=== PATIENT | male | born 1940 | race Caucasian/White ===

== ENCOUNTER 2019-01-20 22:50 | Inpatient (IN) | payer MEDICARE ==
[2019-01-20 23:35] LABS: INR-International Normal Ratio 1.1; PTT 29.8 SEC (22.9-36.1); Prothrombin Time 14.7 SEC (12.0-14.7)
[2019-01-20 23:48] LABS: #Lymphocytes 0.5 thou/uL (1.20-3.40); #Monocytes 0.3 thou/uL (0.11-0.59); #Neutrophils 4.3 thou/uL (1.40-6.50); %Eosinophils 0.8 % (0.0-10.0); %Lymphocytes 9.5 % (21.0-51.0); %Monocytes 6.6 % (0.0-10.0); %Neutrophils 83.1 % (42.0-75.0); Hemoglobin 14.7 g/dL (14.0-18.0); Mean Corpuscular HGB CONC 31.6 g/dL (32.0-36.0); Mean Corpuscular Hemoglobin 30.5 pg (27.0-31.0); Mean Corpuscular Volume 96.5 fL (78.0-98.0); Mean Platelet Volume 8.6 fL (7.4-10.4); Platelet Count 119 thou/uL (130-400); Platelet Morphology Comment Appears Decreased; RBC Distribution Width 13.3 % (11.5-14.5); RBC Morphology Normal; Red Blood Cell (RBC) Count 4.82 mill/uL (4.70-6.10); White Blood Cell (WBC) Count 5.1 thou/uL (4.8-10.8)
[2019-01-20 23:49] LABS: CK (CPK) 88 U/L (30-200); Lipase 35 U/L (8-78)
[2019-01-21] MEDS ORDERED: Metoclopramide HCl 10 MG/2 ML VIAL ONE (01:28)
[2019-01-21] MEDS ORDERED: Ondansetron ODT 4 MG TAB PO PRN (01:46)
[2019-01-21] MEDS ORDERED: Acetaminophen 325 MG TAB PO PRN (01:46)
[2019-01-21] MEDS ORDERED: Ondansetron PF 4 MG/2 ML Vial IVP PRN (01:46)
[2019-01-21] MEDS ORDERED: Acetaminophen 650 MG Suppository PR PRN (01:46)
[2019-01-21 02:05] LABS: Hemoglobin 14.3 g/dL (14.0-18.0)
[2019-01-21 02:34] LABS: Troponin I Less than 0.010 ng/mL (< 0.028)
[2019-01-21 03:01] VITALS: BMI 36.5
[2019-01-21] MEDS: Pantoprazole 80 MG in Sodium Chloride 0.9% 100 ML IVP SCH ×2 (03:07→13:40)
--- NOTE | 2019-01-21 04:47 | HP ---
PRIMARY CARE DOCTOR: Dr. Chuy Shearer. CODE STATUS: Full code. TIME OF EVALUATION: 1:35 a.m. CHIEF COMPLAINT: Throwing up blood. HISTORY OF PRESENT ILLNESS: This is a 78-year-old male patient with past medical history of coronary artery disease, hypertension, who came to the hospital after having an episode of throwing up blood. The patient had multiple vomiting during the day. He reported it was red blood with no clear triggers, no alleviating factors, associated with signs of indigestion. The patient is on Eliquis. Denies taking any NSAIDs and no previous history of ulcer disease or any history of cancer in the family. The patient received no EGD or colonoscopy before. Symptoms were reported as moderate, associated with abdominal pain. REVIEW OF SYSTEMS: CONSTITUTIONAL: No fever, chills, or generalized weakness. RESPIRATORY: No cough, sputum production, or shortness of breath. CARDIOVASCULAR: The patient has no chest pain, no palpitation. GASTROINTESTINAL: The patient has nausea, vomiting, and hematemesis. No diarrhea or abdominal pain. DIET AID: No dizziness, headache, or feeling lightheaded. GENITOURINARY: No burning on urination. EXTREMITIES: No leg swelling. All other systems were reviewed and negative except for the findings mentioned above. PAST MEDICAL HISTORY: Positive for coronary artery disease, hypertension, and arrhythmia. PAST SURGICAL HISTORY: The patient has a defibrillator and pacemaker. PSYCHIATRIC HISTORY: No previous psych history. SOCIAL HISTORY: The patient lives at home with family. Drinks socially. No drug use. No smoking history. KNOWN ALLERGIES: No known drug allergies. REPORTED MEDICATIONS: 1. Allopurinol. 2. Isosorbide. 3. Nitro-B.i.d.. 4. Eliquis. PHYSICAL EXAMINATION: VITAL SIGNS: On presentation, blood pressure 129/76 with heart rate 104, respiratory rate was 18, temperature 98.8, pain 0/10, oxygen saturation was 95% on room air. GENERAL APPEARANCE: The patient is alert, oriented, no acute distress. HEENT: Eyes; normal conjunctivae. Moist oral mucosa. Anicteric. No JVD. RESPIRATORY: Bilateral air entry. No rales. No wheezes. Symmetric expansion. CARDIOVASCULAR: Normal rate. Regular rhythm. No murmurs. No gallop. No edema. ABDOMEN: Soft. Normal bowel sounds. MUSCULOSKELETAL: Baseline range of motion and strength. No tenderness. SKIN: Warm, intact. No pallor. No rash. No redness. Capillary refill seems to intact. NEURO: No evidence of any new focal weakness. Cranial nerves seems to be intact. PSYCH: The patient is in good mood. No anxiety. Optimal judgment. DIAGNOSTIC DATA: EKG was reviewed. The patient has AV dual paced rhythm with a QRS 130, QT corrected 500. LABORATORY DATA: Labs were reviewed. The patient has white count of 5.1, hemoglobin 14.7, MCV 96.5, platelet count 219. Coagulation; PT 14.7, INR 1.1, PTT 29.8. Chemistry CK 88. Troponin was negative x2. Beta natriuretic peptide 425, lipase 35. ASSESSMENT AND PLAN: The patient will be placed in the hospital for following medical problems. 1. Upper gastrointestinal bleeding. The patient is on Eliquis that we will hold for now. He was taking it for atrial fibrillation. Hemoglobin is stable. The patient is stable. We will consult Gastroenterology and follow up recommendations. Monitor hemoglobin. The patient is on Protonix drip. 2. Controlled hypertension, reconcile home medications. Adjust treatment as needed. 3. Tachycardia. This could be related to volume depletion. The patient received fluids and we will continue to monitor hemoglobin. 4. History of coronary artery disease, this is chronic, stable, we will reconcile home medications. 5. Deep venous thrombosis prophylaxis. The patient has had gastrointestinal bleed. Place the patient on SCDs and we will hold anticoagulation. Job ID: [id number]
[2019-01-21 06:37] LABS: #Eosinphils 0.1 thou/uL (0.0-0.7); #Lymphocytes 0.8 thou/uL (1.20-3.40); #Monocytes 0.5 thou/uL (0.11-0.59); #Neutrophils 3.3 thou/uL (1.40-6.50); %Basophils 0.4 % (0.0-1.0); %Eosinophils 1.1 % (0.0-10.0); %Lymphocytes 16.7 % (21.0-51.0); %Monocytes 11.7 % (0.0-10.0); %Neutrophils 70.1 % (42.0-75.0); Hemoglobin 13.7 g/dL (14.0-18.0); Mean Corpuscular HGB CONC 32.2 g/dL (32.0-36.0); Mean Corpuscular Hemoglobin 30.9 pg (27.0-31.0); Mean Corpuscular Volume 95.8 fL (78.0-98.0); Mean Platelet Volume 8.8 fL (7.4-10.4); Platelet Count 113 thou/uL (130-400); RBC Distribution Width 13.3 % (11.5-14.5); Red Blood Cell (RBC) Count 4.44 mill/uL (4.70-6.10); White Blood Cell (WBC) Count 4.6 thou/uL (4.8-10.8)
[2019-01-21 06:43] LABS: Anion Gap 14 mmol/L (10-20); BUN (Urea Nitrogen) 16 mg/dL (8.4-25.7); Calc. Creatinine Clearance 98 mL/min (70-130); Calcium 8.4 mg/dL (7.8-10.44); Carbon Dioxide 23 mmol/L (23-31); Chloride 106 mmol/L (98-107); Estimated GFR-MDRD 82; Glucose 113 mg/dL (83-110); Potassium 3.7 mmol/L (3.5-5.1); Sodium 139 mmol/L (136-145)
[2019-01-21 06:48] LABS: Troponin I Less than 0.010 ng/mL (< 0.028)
[2019-01-21 08:30] LABS: Hemoglobin 13.9 g/dL (14.0-18.0)
[2019-01-21 14:07] LABS: Hemoglobin 13.7 g/dL (14.0-18.0)
--- NOTE | 2019-01-21 17:39 | PDOC.EVN ---
Event Note - Event Note Event Note: Chart reviewed, pt seen. Denies further episodes of bleeding. VSS. Will continue to monitor on telemetry, await GI consult.
--- NOTE | 2019-01-21 18:29 | CON ---
DATE OF CONSULTATION: 01/21/2019 CHIEF COMPLAINT: Vomited blood. HISTORY OF PRESENT ILLNESS: Mr. Ramesh is a 78-year-old man, who had a poor appetite yesterday evening and then vomited multiple times. He went to the emergency room in [place] and reports that a CT scan was done and an ultrasound and then he vomited in the ER some coffee-ground appearing material and he was sent to [place] for evaluation of hematemesis. He has had no red hematemesis. No diarrhea, constipation, or melena. He did have a dark brown stool this morning. He has had no ongoing abdominal pain, but has had some early satiety and increased belching over the last 3 weeks. No chest pain or shortness of breath. PAST MEDICAL HISTORY: Significant for ischemic cardiomyopathy, coronary artery disease, hypertension, hyperlipidemia, and gout. PAST SURGICAL HISTORY: Inguinal hernia repair, cataract surgery, and defibrillator placement with pacemaker. FAMILY HISTORY: Negative for GI malignancies. SOCIAL HISTORY: No alcohol, tobacco, or drugs. ALLERGIES: NO KNOWN DRUG ALLERGIES. MEDICATIONS: Prior to admission include: 1. Allopurinol. 2. Isosorbide. 3. Nitro-Bid. 4. Eliquis. REVIEW OF SYSTEMS: Negative x10 systems reviewed except as stated in history of present illness. PHYSICAL EXAMINATION: VITAL SIGNS: Temperature 98.4, pulse 102, and blood pressure 115/63. GENERAL: He is in no acute distress. Alert and oriented x3. HEENT: Eyes have no scleral icterus. Oropharynx is clear without lesions. No cervical or supraclavicular lymphadenopathy. LUNGS: Clear to auscultation bilaterally. HEART: Regular rate and rhythm without murmur. ABDOMEN: Soft, nontender, and nondistended. Bowel sounds are present. EXTREMITIES: No lower extremity edema. NEUROLOGIC: Cranial nerves are grossly intact. LABORATORY DATA: Hemoglobin is 13.7, last night hemoglobin of 14.7, white blood cell count 4.6, platelets 113. INR 1.1. Creatinine 0.9. BNP 425, bilirubin 0.3, AST 27, ALT 14, alkaline phosphatase 46, and albumin 4.3. IMPRESSION: 1. Nausea and vomiting starting yesterday afternoon. Could be an acute infectious gastroenteritis or other source. The question of coffee-grounds emesis. His hemoglobin is fairly stable; however, he has been on Eliquis with his last dose having been yesterday morning. 2. Hematemesis. Given the possible hematemesis with the described coffee-grounds emesis, we will plan endoscopy to evaluate for a significant bleeding source for restarting his anticoagulation. RECOMMENDATIONS: 1. Request the imaging results from the outside ER from yesterday. 2. We will plan for upper endoscopy tomorrow. 3. Proton pump inhibitor. 4. Eliquis is held with the last dose yesterday morning. 5. Ischemic cardiomyopathy with defibrillator in place. Job ID: [id number]
[2019-01-22] MEDS: Pantoprazole 80 MG in Sodium Chloride 0.9% 100 ML IVP SCH (00:15)
[2019-01-22 06:51] LABS: #Eosinphils 0.1 thou/uL (0.0-0.7); #Lymphocytes 1.2 thou/uL (1.20-3.40); #Monocytes 0.5 thou/uL (0.11-0.59); #Neutrophils 2.8 thou/uL (1.40-6.50); %Basophils 0.5 % (0.0-1.0); %Eosinophils 1.7 % (0.0-10.0); %Lymphocytes 25.5 % (21.0-51.0); %Monocytes 10.9 % (0.0-10.0); %Neutrophils 61.3 % (42.0-75.0); Hemoglobin 13.2 g/dL (14.0-18.0); Mean Corpuscular HGB CONC 32.3 g/dL (32.0-36.0); Mean Corpuscular Hemoglobin 30.9 pg (27.0-31.0); Mean Corpuscular Volume 95.5 fL (78.0-98.0); Mean Platelet Volume 8.7 fL (7.4-10.4); Platelet Count 105 thou/uL (130-400); RBC Distribution Width 13.4 % (11.5-14.5); Red Blood Cell (RBC) Count 4.29 mill/uL (4.70-6.10); White Blood Cell (WBC) Count 4.6 thou/uL (4.8-10.8)
[2019-01-22 07:12] LABS: Anion Gap 12 mmol/L (10-20); BUN (Urea Nitrogen) 12 mg/dL (8.4-25.7); Calc. Creatinine Clearance 93 mL/min (70-130); Calcium 8.9 mg/dL (7.8-10.44); Carbon Dioxide 27 mmol/L (23-31); Chloride 105 mmol/L (98-107); Estimated GFR-MDRD 77; Glucose 91 mg/dL (83-110); Potassium 3.5 mmol/L (3.5-5.1); Sodium 140 mmol/L (136-145)
[2019-01-22 08:26] VITALS: TEMP 99.2
[2019-01-22] MEDS ORDERED: Carvedilol 25 MG TAB PO SCH ×2 (08:45→11:00)
[2019-01-22] MEDS ORDERED: Promethazine HCl 25 MG/ML VIAL IM PRN (09:59)
[2019-01-22] MEDS ORDERED: Ondansetron HCl/PF 4 MG/2 ML Vial IVP PRN (09:59)
[2019-01-22] MEDS ORDERED: Promethazine HCl 25 MG/ML VIAL SLOW IVP PRN (09:59)
[2019-01-22 10:49] VITALS: BP 121/81
--- NOTE | 2019-01-22 13:00 | PDOC.PN ---
- Subjective Encounter Start Date: 01/22/19 Encounter Start Time: 12:00 Subjective: feels better, no abd pain or nausea -: at bedside - Objective Resuscitation Status - Order Detail: 01/21/19 10:41 Resuscitation Status Routine Resuscitation Status: PRTL: Cardiac only Discussed with: confirmed with pt Additional comments: he is refusing intubation, ok with all other resusciative measures MAR Reviewed: Yes Vital Signs & Weight: Vital Signs (12 hours) Temp Pulse Resp BP Pulse Ox 01/22/19 10:35 101 H 16 121/81 94 L 01/22/19 07:45 99.2 F 104 H 16 138/81 93 L 01/22/19 04:00 98.8 F 113 H 13 135/84 97 Weight Admit Weight 226 lb 2 oz Weight 226 lb 2 oz I&O: 01/21/19 01/22/19 01/23/19 06:59 06:59 06:59 Intake Total 1040 Output Total 840 Balance 200 Result Diagrams: 01/22/19 06:15 01/22/19 06:15 Phys Exam - Physical Examination HEENT: PERRLA, moist MMs Neck: no JVD, supple Respiratory: no wheezing, no rales Cardiovascular: RRR, no significant murmur Gastrointestinal: soft, non-tender, positive bowel sounds Musculoskeletal: no edema, pulses present Neurological: non-focal, moves all 4 limbs Psychiatric: normal affect, A&O x 3 Dx/Plan (1) GI bleed Code(s): K92.2 - GASTROINTESTINAL HEMORRHAGE, UNSPECIFIED Status: Acute Qualifiers: GI bleed type/associated pathology: unspecified gastrointestinal hemorrhage type Qualified Code(s): K92.2 - Gastrointestinal hemorrhage, unspecified (2) CAD (coronary artery disease) Code(s): I25.10 - ATHSCL HEART DISEASE OF [place] CORONARY ARTERY W/O ANG PCTRS Status: Chronic Qualifiers: Coronary Disease-Associated Artery/Lesion type: [place] artery [place] vs. transplanted heart: [place] heart Associated angina: without angina Qualified Code(s): I25.10 - Atherosclerotic heart disease of [place] coronary artery without angina pectoris (3) Dyslipidemia Code(s): E78.5 - HYPERLIPIDEMIA, UNSPECIFIED Status: Chronic (4) Gout Code(s): M10.9 - GOUT, UNSPECIFIED Status: Chronic Qualifiers: Gout site: unspecified site Chronicity: chronic Presence of tophus: without tophus (5) Cardiomyopathy Code(s): I42.9 - CARDIOMYOPATHY, UNSPECIFIED Status: Chronic Qualifiers: Cardiomyopathy type: ischemic Qualified Code(s): I25.5 - Ischemic cardiomyopathy (6) Afib Code(s): I48.91 - UNSPECIFIED ATRIAL FIBRILLATION Status: Chronic Qualifiers: Atrial fibrillation type: chronic Qualified Code(s): I48.2 - Chronic atrial fibrillation (7) HTN (hypertension) Code(s): I10 - ESSENTIAL (PRIMARY) HYPERTENSION Status: Chronic Qualifiers: Hypertension type: essential hypertension Qualified Code(s): I10 - Essential (primary) hypertension (8) Pacemaker Code(s): Z95.0 - PRESENCE OF CARDIAC PACEMAKER Status: Chronic Comment: with aicd - Plan egd shows no active bleeding -: has been cleared for dc, to start eliquis after 2 days -: hemostable, h/h stable -: may dc home * . Review of Systems - Medications/Allergies Allergies/Adverse Reactions: Allergies Allergy/AdvReac Type Severity Reaction Status Date / Time No Known Drug Allergies Allergy Verified 01/21/19 02:43 Medications: Current Medications Acetaminophen (Tylenol) 650 mg PO Q4H PRN PRN Reason: Headache/Fever/Mild Pain (1-3) Acetaminophen (Tylenol) 650 mg DC Q4H PRN PRN Reason: Headache/Fever/Mild Pain (1-3) Ondansetron HCl (Zofran Odt) 4 mg PO Q6H PRN PRN Reason: Nausea/Vomiting Ondansetron HCl (Zofran) 4 mg IVP Q6H PRN PRN Reason: Nausea/Vomiting Ondansetron HCl (Pacu-Zofran) 4 mg IVP ONE PRN PRN Reason: Nausea/Vomiting Stop: 01/22/19 13:00 Pantoprazole Sodium (Protonix) 40 mg PO BID [place] Promethazine HCl (Pacu-Phenergan) 6.25 mg SLOW IVP ONE PRN PRN Reason: Nausea/Vomiting Stop: 01/22/19 13:00 Promethazine HCl (Pacu-Phenergan) 6.25 mg IM ONE PRN PRN Reason: Nausea/Vomiting Stop: 01/22/19 13:00 Sodium Chloride (Flush - Normal Saline) 10 ml IVF PRN PRN PRN Reason: Saline Flush
--- NOTE | 2019-01-22 13:55 | OP ---
DATE OF PROCEDURE: 01/22/2019 PROCEDURE PERFORMED: Esophagogastroduodenoscopy. PREOPERATIVE DIAGNOSIS: Hematemesis on anticoagulation. DESCRIPTION OF PROCEDURE: Informed consent was obtained from the patient. He was sedated with total intravenous anesthesia. The bite block was placed and the endoscope was advanced easily to the second portion of the duodenum and retroflexion was performed in the stomach. The esophagus was normal overall. The Z-line was irregular. There was a Sarah-Zuñiga tear just below the Z-line within the GE junction that did not have any obvious visible vessel or stigmata of recent bleeding. The stomach was normal including retroflex views. The pylorus and first and second portions of the duodenum were normal. IMPRESSION: 1. Sarah-Zuñiga tear at the GE junction without stigmata of recent bleed or visible vessel. This was likely secondary to the repeated retching that occurred with initial onset of the symptoms. This original vomiting may have been an infectious gastroenteritis, this has now resolved. 2. Otherwise normal esophagogastroduodenoscopy. RECOMMENDATIONS: 1. Proton pump inhibitor daily for 2 weeks. 2. It should be okay to restart the anticoagulation in 2 days. 3. Anticipate discharge home today. I will sign off. Please call if GI can help. Job ID: [id number]
--- NOTE | 2019-01-24 08:11 | DIS ---
DATE OF ADMISSION: 01/20/2019 DATE OF DISCHARGE: 01/22/2019 DISCHARGE DISPOSITION: Home. 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 SECONDARY DISCHARGE DIAGNOSES: Coronary artery disease, dyslipidemia, gout, cardiomyopathy, chronic atrial fibrillation, hypertension, pacemaker. PROCEDURES DONE DURING HOSPITALIZATION: Upper endoscopy done by Dr. Shaheed Rogers on 01/22/2019 showed Sarah-Zuñiga tear at the gastroesophageal junction without stigmata of recent bleed or visible vessel. Stool occult blood x1 was negative. H and H 13 and 41, platelet count 105, MCV is 95, white count of 4.6, BUN 12, creatinine 0.9. Troponin x3 negative. Lipase is 35. DISCHARGE MEDICATIONS: 1. Allopurinol 300 mg p.o. daily. 2. Aspirin 81 mg p.o. daily to start from 01/24/2019. 3. Fish oil one capsule daily. 4. Rosuvastatin 40 mg p.o. daily. 5. Eliquis 5 mg twice daily to start from 01/24/2019. 6. Coreg 25 mg twice daily. 7. Imdur 120 mg p.o. daily. 8. Lisinopril 10 mg p.o. twice daily. 9. Protonix 40 mg p.o. twice daily for one month. ALLERGIES: NO KNOWN DRUG ALLERGIES. INPATIENT CONSULT: Dr. Shaheed Rogers for Gastroenterology. DISCHARGE PLAN: To follow up with Dr. Rogers in 4 weeks and primary care physician in 1 week. BRIEF COURSE DURING HOSPITALIZATION: The patient initially was brought to emergency room after he had multiple episodes of vomiting with one episode of coffee-ground emesis. He was on Eliquis for history of chronic atrial fibrillation. In December of this year, the patient was admitted to telemetry. He has had serial H and H done, which has remained stable. His hemoglobin is around 13. In view of the patient being on Eliquis, he has had upper endoscopy done, which showed Sarah-Zuñiga tear, likely due to repeated retching that he had with vomiting. There was no active bleed seen on the endoscopy. He is cleared to start Eliquis and aspirin from . He has been placed on Protonix. He is hemodynamically stable and will be shortly discharged home. Please see a [id number] documentation for the day of discharge on [employer]. Job ID: [id number]
== END 2019-01-22 14:00 | disposition home or self-care (01) | DRG 370 ==
LOC: ERS 22:50 → 2NO 23:40
PROVIDERS: ADMIT Hospitalist; ATTEND Hospitalist
PROC: 0DJ08ZZ Inspection of Upper Intestinal Tract, Via Natural or Artificial Opening Endoscopic (ICD-10-PCS; principal; 2019-01-22)
DX: K22.6 Gastro-esophageal laceration-hemorrhage syndrome (principal); I25.10 Atherosclerotic heart disease of native coronary artery without angina pectoris; I10 Essential (primary) hypertension; E86.9 Volume depletion, unspecified; I25.5 Ischemic cardiomyopathy; E78.5 Hyperlipidemia, unspecified; M10.9 Gout, unspecified; Z95.810 Presence of automatic (implantable) cardiac defibrillator; Z79.01 Long term (current) use of anticoagulants; Z79.899 Other long term (current) drug therapy
CPT/HCPCS: 36415; 80048; 82274; 82550; 83690; 83880; 84484; 85025; 85610; 85730; 86850; 86900; 86901; 93005; 96365; 96366; 96375; C9113; J2765; J3490

== ENCOUNTER 2020-09-03 13:33 | Inpatient (IN) | payer MEDICARE ==
[2020-09-03 14:12] LABS: #Eosinphils 0.1 thou/uL (0.0-0.7); #Lymphocytes 2.1 thou/uL (1.20-3.40); #Monocytes 0.5 thou/uL (0.11-0.59); #Neutrophils 4.5 thou/uL (1.40-6.50); %Basophils 0.3 % (0.0-1.0); %Eosinophils 1.1 % (0.0-10.0); %Lymphocytes 28.6 % (21.0-51.0); Hemoglobin 13.6 g/dL (14.0-18.0); Mean Corpuscular HGB CONC 32.1 g/dL (32.0-36.0); Mean Corpuscular Hemoglobin 30.8 pg (27.0-31.0); Mean Corpuscular Volume 96.1 fL (78.0-98.0); Mean Platelet Volume 8.7 fL (7.4-10.4); Platelet Count 144 thou/uL (130-400); RBC Distribution Width 13.8 % (11.5-14.5); Red Blood Cell (RBC) Count 4.41 mill/uL (4.70-6.10); White Blood Cell (WBC) Count 7.2 thou/uL (4.8-10.8)
[2020-09-03 14:17] LABS: INR-International Normal Ratio 1.2; PTT 29.7 sec (22.9-36.1); Prothrombin Time 15.3 sec (12.0-14.7)
--- NOTE | 2020-09-03 14:29 | RAD ---
EXAM: Single view of the chest HISTORY: Left-sided weakness COMPARISON: 09/19/2015, 04/12/2018 FINDINGS: Single view of the chest shows an enlarged but stable cardiomediastinal silhouette. There is a triple lead pacemaker with its leads in the right atrium, right ventricle, and coronary sinus. Chronic interstitial lung markings are present. There is no evidence of consolidation, mass, or pleu ral effusion. No acute osseous abnormality. IMPRESSION: No evidence of acute cardiopulmonary disease
[2020-09-03 14:35] LABS: ALT (SGPT) 15 U/L (8-55); AST (SGOT) 25 U/L (5-34); Albumin 4.3 g/dL (3.4-4.8); Alkaline Phosphatase 56 U/L (40-110); Anion Gap 13 mmol/L (10-20); BUN (Urea Nitrogen) 16 mg/dL (8.4-25.7); Bilirubin, Total 0.8 mg/dL (0.2-1.2); CK (CPK) 78 U/L (30-200); Calc. Creatinine Clearance 0 mL/min (70-130); Calcium 9.1 mg/dL (7.8-10.44); Carbon Dioxide 27 mmol/L (23-31); Chloride 102 mmol/L (98-107); Globulin 2.8 g/dL (2.4-3.5); Glucose 136 mg/dL (83-110); Potassium 4.1 mmol/L (3.5-5.1); Protein, Total 7.1 g/dL (5.8-8.1); Sodium 138 mmol/L (136-145)
[2020-09-03] MEDS ORDERED: Iopamidol-370 76% 500 ML 1 ML ONE (15:02)
[2020-09-03] MEDS ORDERED: Acetaminophen 325 MG TAB PO PRN (16:51)
[2020-09-03] MEDS ORDERED: Senokot S 8.6-50 MG TAB PO PRN (16:51)
[2020-09-03] MEDS ORDERED: Sodium Chloride 0.9% 1,000 ML IV SCH (17:45)
[2020-09-03 18:21] VITALS: BMI 28.8
[2020-09-03] MEDS ORDERED: Dexamethasone 4 mg/ml Vial SLOW IVP SCH (18:45)
--- NOTE | 2020-09-03 19:06 | HP ---
CHIEF COMPLAINT: Left-sided weakness. HISTORY OF PRESENT ILLNESS: The patient is an 80-year-old male with a past medical history of hypertension, CAD, cardiomyopathy, atrial fibrillation, hypertension, who comes into the hospital with left-sided weakness x1 week. The patient stated that he started noticing left upper extremity and left lower extremity weakness for about a week. He can continue to work. He denies any headaches, any blurry vision, any nausea, vomiting, or diarrhea. He came in today because he stated that his weakness was not improving. The patient actually fell in August 04. He tripped at work, injured his left knee. He denies any fevers or chills or any travels outside of the country. PAST MEDICAL HISTORY: He has a history of coronary artery disease, dyslipidemia, gout, chronic atrial fibrillation, hypertension, pacemaker, cardiomyopathy, also Sarah-Zuñiga tear. The patient also had skin cancer, but he does not recall what type, it was a long time ago. PAST SURGICAL HISTORY: As the following; defibrillator, pacemaker, and hernia surgery. FAMILY HISTORY: Father had a massive ID at age of 67. Mother had some sort of cancer. SOCIAL HISTORY: He used a pipe smoker a long time ago, quit many years ago. Socially drinks. No drug use. He is a full code. Lives with his . ALLERGIES: NO KNOWN DRUG ALLERGIES. MEDICATIONS: 1. Entresto 97 mg/103 mg one p.o. b.i.d. 2. Eliquis 5 mg b.i.d. 3. Carvedilol 25 b.i.d. 4. Isosorbide 120 mg daily. 5. Lisinopril 40 mg daily. 6. Allopurinol 300 mg daily. 7. Aspirin 81 mg daily. 8. Nicotine 0.4 patch as needed. REVIEW OF SYSTEMS: All negative except the ones mentioned above in the HPI. PHYSICAL EXAMINATION: VITAL SIGNS: As of the following; temperature 98.2, respirations 16, heart rate 88, blood pressure 109/71, O2 saturations 95% on room air. GENERAL: He is awake, alert, and oriented x3. Does not appear in distress. CVS: S1 and S2 present. No murmurs, rubs, or gallops. LUNGS: Clear to auscultation. No rhonchi or wheezes noted. ABDOMEN: Soft and nontender. Bowel sounds are present x2. EXTREMITIES: No edema. Pedal pulses are present x2. The left knee is more swollen than the right knee. However, no fluid noted. He does have some dry skin over the left and right knee. NEUROLOGIC: Neurovascular welsh, he does have a facial droop on the left side. He does have some weakness on the left upper and lower extremity compared to the right upper and lower extremity. Sensation is decreased also in the left upper and lower extremity. However, the facial nerves are intact. SKIN: No cuts or lesions noted. LABORATORY RESULTS: WBCs of 7.2, hemoglobin 13.6, hematocrit of 42.4, platelets of 144. Chemistry; sodium of 138, potassium 4.1, BUN of 16, creatinine 1.04. He had a CT head, which indicated a right-sided mass. Chest x-ray indicated no acute abnormalities. ASSESSMENT AND PLAN: The patient is an 80-year-old male, who presents to the hospital with complaints of left-sided weakness. 1. Left-sided weakness, most likely secondary to a new mass. We will get an MRI brain with and without contrast with Neurosurgery. We will start the patient on Decadron. We will start the patient on PPI. We will also get a CT chest, abdomen, pelvis to rule out any other metastatic lesions. The patient had a colonoscopy some time ago. He had some polyps; however, they were benign per the . Otherwise, he is pretty healthy per the patient and the patient's family. We will hold Eliquis and aspirin for now. 2. Hypertension. We will continue his home medications. We will start some gentle hydration since we will be giving some contrast to the patient. 3. Chronic atrial fibrillation. We will hold anticoagulation for possible biopsy for now. 4. Deep venous thrombosis prophylaxis. I will put the patient on SCDs for now and continue to monitor. Job ID: [id number]
--- NOTE | 2020-09-03 21:28 | CT ---
CT CHEST, ABDOMEN AND PELVIS WITH IV CONTRAST 09/03/20 PROVIDED CLINICAL HISTORY: Brain mass. FINDINGS: Vascular calcification including coronary calcium is demonstrated. The heart, pericardium and great v essels appear otherwise unremarkable. there is no evidence for thoracic lymph node enlargement. There is small bilateral pleural fluid. There is no evidence for pneumothorax. The lungs are free of signi ficant opacity. The airway appears patent and of normal caliber. The solid abdominal organs demonstrate no significant abnormality. There is no bowel dilatation, inflammatory at stranding, free fluid or lymph node enlargement apparen t. Atherosclerotic vascular calcifications are seen involving the abdominal aorta and its branches. Ther e is a mildly prominent in size prostate gland. The osseous structures demonstrate no concerning lytic or blastic lesions. Spinal degenerative change s are seen. IMPRESSION: 1. No evidence for primary or metastatic disease within the chest, abdomen and pelvis. 2. Small bilateral pleural fluid. 3. Atherosclerosis. POS: JULIO
[2020-09-03] MEDS: Pantoprazole 40 MG VIAL IVP SCH (21:43)
[2020-09-03] MEDS: Carvedilol 25 MG TAB PO SCH (21:44)
[2020-09-03] MEDS: Dexamethasone 4 mg/ml Vial SLOW IVP SCH (23:21)
--- NOTE | 2020-09-04 01:43 | CON ---
DATE OF CONSULTATION: 09/03/2020 CHIEF COMPLAINT: Left-sided weakness. HISTORY OF PRESENT ILLNESS: Mr. Ramesh is an 80-year-old gentleman with a history of hypertension and CAD, pacemaker in 2017 and on Eliquis twice a day. He reports one week of left-sided weakness. When he walks, he drags his left foot. Denies any visual changes, headache, nausea, seizures, sleep disturbances, cranial nerve defects, or unsteady gait. He has free active range of motion on all his extremities. Left focal motor weakness. Head CT showed a 1.5 x 1.2 cm intra- axial mass in the right centrum semiovale. The patient denies bladder or bowel dysfunction. REVIEW OF SYSTEMS: CONSTITUTIONAL: Denies fever, chills. Reports left-sided weakness. ENT: Denies change in vision or hearing. CARDIAC: Denies chest pain, shortness of breath, diaphoresis. PULMONARY: Denies shortness of breath, cough, hemoptysis. GI: Denies abdominal pain, nausea, vomiting, diarrhea, change in stool formation and consistency. : Denies trouble with urination, frequency of urination, or bloody urine. SKIN: Denies skin rash, bruising, bleeding, skin masses. MUSCULOSKELETAL: As per History of Present Illness. NEUROLOGICAL: As per History of Present Illness. PSYCHOLOGICAL: Denies anxiety, depression, or behavior changes. MEDICAL HISTORY: CAD, hypertension, cataracts, defibrillator placed. PAST SURGICAL HISTORY: Cataract, defibrillator. SOCIAL HISTORY: The patient denies alcohol, nicotine, illicit drugs. MEDICATIONS: 1. Allopurinol 300 mg. 2. Isosorbide 120 mg. 3. Nitroglycerin 2.5 mg. 4. Eliquis 2.5 mg b.i.d. 5. Aspirin 81 mg. 6. Carvedilol 6.25 mg. 7. Rosuvastatin 40 mg. 8. Entresto 97 mg-103 mg. ALLERGIES: NO KNOWN DRUG ALLERGIES. PHYSICAL EXAMINATION: VITAL SIGNS: Blood pressure 110/78, pulse 78, respiratory rate 16, temperature 98.2. HEENT: Pupils are equal. Extraocular movements are intact. NECK: Soft, supple. No masses are noted. Range of motion is intact and nonpainful. NEUROLOGICAL: Awake, alert, oriented x3. Memory, attention, fund of knowledge is normal. Cranial nerves are grossly intact. Upper extremities; he has 4/5 strength in his left deltoids, biceps, triceps, wrist extensors, finger intrinsics. Sensation is slightly decreased on the left. Lower extremities; he has 4/5 left strength in his iliopsoas, quadriceps, hamstrings, anterior tib, EHL, and gastrocnemius. Sensation is slightly decreased on the left. Toes are downgoing. LABORATORY DATA: WBC 7.2, platelets 144. PT 15.3, INR 1.2, PTT 29.7. Sodium 138. Head CT 1.5 x 1.2 cm intraaxial mass in the right centrum semiovale. ASSESSMENT: 1. Left-sided weakness. 2. Lesion of the brain. PLAN: Decadron 10 mg to start and 4 mg q.6 hours. Recommend Protonix in conjunction with Decadron. MRI of the brain. If pacemaker is not compatible with MRI, then Brain CT with Brain Lab protocol. Supportive care. No Eliquis or Aspirin for 7 days. No intracranial surgery at this time. Pacemaker December 15, 2016. Serial #[id number]. [place] #[id number]. for compatibility with MRI. Job ID: [id number] MTDD
[2020-09-04 05:37] LABS: #Lymphocytes 0.9 thou/uL (1.20-3.40); #Monocytes 0.1 thou/uL (0.11-0.59); #Neutrophils 3.4 thou/uL (1.40-6.50); %Basophils 0.1 % (0.0-1.0); %Lymphocytes 21.2 % (21.0-51.0); %Monocytes 1.1 % (0.0-10.0); %Neutrophils 77.6 % (42.0-75.0); Hemoglobin 13.4 g/dL (14.0-18.0); Mean Corpuscular HGB CONC 30.9 g/dL (32.0-36.0); Mean Corpuscular Hemoglobin 29.3 pg (27.0-31.0); Mean Corpuscular Volume 94.9 fL (78.0-98.0); Mean Platelet Volume 8.6 fL (7.4-10.4); Platelet Count 148 thou/uL (130-400); RBC Distribution Width 13.7 % (11.5-14.5); Red Blood Cell (RBC) Count 4.58 mill/uL (4.70-6.10); White Blood Cell (WBC) Count 4.4 thou/uL (4.8-10.8)
[2020-09-04] MEDS: Dexamethasone 4 mg/ml Vial SLOW IVP SCH ×3 (05:50→17:15)
[2020-09-04 05:55] LABS: Anion Gap 14 mmol/L (10-20); BUN (Urea Nitrogen) 15 mg/dL (8.4-25.7); Calc. Creatinine Clearance 82 mL/min (70-130); Carbon Dioxide 25 mmol/L (23-31); Chloride 103 mmol/L (98-107); Glucose 213 mg/dL (83-110); Sodium 138 mmol/L (136-145)
--- NOTE | 2020-09-04 09:01 | PRG ---
DATE OF SERVICE: 09/03/2020 I personally interviewed, examined the patient, agreed with documentation of Willy Castellano PA-C, dated 09/03/2020. Briefly, Galdino Ramesh is a very pleasant 80-year-old gentleman, about to celebrate his anniversary. In July, 2 days before [place], he had a fall. Over the intervening month, he has noticed some slowly worsening left-sided weakness. It is now affecting his arm and leg. It makes walking a bit difficult and use of the left arm is slower than the right. He eventually came to the emergency department for evaluation of the weakness. CT examination of brain revealed a lesion in the right frontal lobe superior to the ventricular system, but deep to the cortex in the anterior portion of the lobe. There are some surrounding edema. Neurosurgery was consulted. Overnight, Mr. Ramesh has been started on Decadron. He feels slightly better than he did yesterday with improvement in the left-sided motor function. No fevers have been recorded overnight. Blood pressures had been 100 to 140s. Mr. Ramesh is wide awake. He converses easily. He remembers all the events surrounding his admission. I do not find any cognitive decline. Cranial nerves are working well. There is a very slight left pronator drift. Alternating rapid motions are performed more slowly with the left fingers than the right fingers. He has good strength in the legs. 1. CT examination of the brain, findings are noted above. 2. MR imaging has not been done. Mr. Ramesh has a pacemaker. He also is on Eliquis and aspirin for cardiac disease and atrial fibrillation. These issues will slightly slow his care. I asked him to stop his aspirin and eliquis. He will need to be off those at least a week before we consider any surgical intervention, if that is even warranted. MR imaging can be done once the admitting representative from the pacemaker company is contacted and there is a protocol to safely get him through a scan. Gadolinium will be helpful. Once MR imaging is done (we may have to wait until next week), then I will follow up with the patient and his to discuss the next steps. They would really like to get to their 60th anniversary alliance party on September 18 and then have any surgical intervention done, especially if he requires a significant recovery. Indeed, this one would if we decide for resection. However, this could be an intraparenchymal hemorrhage that is on its way to going away and an MRI would be valuable in showing us the hemosiderin left behind. If that is not the case and this is a tumor, the CT of chest, abdomen and pelvis was negative, so it could still be a metastatic lesion like melanoma that may show up in the brain first or could be a primary brain tumor. I doubt this is infection. I think he would be more ill were he to harbor endocarditis and an infectious process in the brain. I will see them next after an MR image is done. Job ID: [id number] [facility]
[2020-09-04] MEDS: Allopurinol 300 MG TAB PO SCH (10:06)
[2020-09-04] MEDS: Pantoprazole 40 MG VIAL IVP SCH ×2 (10:07→20:15)
[2020-09-04] MEDS: Rosuvastatin 20 MG TAB PO SCH (10:18)
[2020-09-04 10:24] LABS: SARS-CoV-2 PCR by NAA DETECTED (NotDetected)
--- NOTE | 2020-09-04 10:58 | PDOC.HOSPP ---
- Subjective Subjective: No change in left arm weakness. Patient also reports unsteady gait. He denied any headache or visual disturbance. - Objective Vital Signs & Weight: Vital Signs (12 hours) Temp Pulse Resp BP Pulse Ox 09/04/20 07:30 97.6 F 99 20 112/77 95 09/04/20 03:32 98.2 F 78 17 106/68 96 09/03/20 23:22 98.7 F 73 21 H 117/71 94 L Weight Weight 212 lb 8 oz I&O: 09/03/20 09/04/20 09/05/20 06:59 06:59 06:59 Intake Total 620 Balance 620 Result Diagrams: 09/04/20 05:23 09/04/20 05:23 Additional Labs: Accuchecks 09/03/20 13:38 POC Glucose 156 H Hospitalist ROS - Review of Systems Constitutional: denies: fever Gastrointestinal: denies: nausea, vomiting Musculoskeletal: denies: neck pain, arm pain - Medication Medications: Active Medications Generic Name Dose Route Start Last Admin Trade Name Tevin PRN Reason Stop Dose Admin Allopurinol 300 mg 09/04/20 09:00 09/04/20 10:06 Allopurinol 300 Mg Tab PO 300 mg DAILY HALEIGH Administration Carvedilol 25 mg 09/03/20 21:00 09/03/20 21:44 Carvedilol 25 Mg Tab PO Not Given 1200,2100 H[facility]IGH Dexamethasone 4 mg 09/03/20 23:59 09/04/20 05:50 Dexamethasone 4 Mg/Ml Vial SLOW IVP 4 mg Q6HR [facility]IGH Administration Sodium Chloride 1,000 mls @ 50 mls/hr 09/03/20 17:45 09/03/20 18:53 Normal Saline 0.9% IV 09/04/20 13:44 1,000 mls .Q20H [place]IGH Administration Isosorbide Mononitrate 120 mg 09/04/20 09:00 09/04/20 10:06 Isosorbide Mononitrate Er 60 Mg Tab PO 120 mg DAILY [place] Administration Pantoprazole Sodium 40 mg 09/03/20 21:00 09/04/20 10:07 Pantoprazole 40 Mg Vial IVP 40 mg Q12HR [place] Administration Rosuvastatin Calcium 40 mg 09/04/20 09:00 09/04/20 10:18 Rosuvastatin 20 Mg Tab PO 40 mg DAILY [place]IGH Administration Sodium Chloride 10 ml 09/03/20 21:00 09/04/20 10:08 Flush - Normal Saline 10 Ml Syringe IVF 10 ml Q12HR [place] Administration Sodium Chloride 10 ml 09/03/20 18:45 09/04/20 05:50 Flush - Normal Saline 10 Ml Syringe IVF 10 ml PRN PRN Administration Saline Flush - Exam General Appearance: NAD, awake alert Eye: PERRL ENT: normocephalic atraumatic, moist mucosa Neck: supple, symmetric, no JVD Heart: no murmur Respiratory: CTAB, no rales, no ronchi Gastrointestinal: soft, non-tender, normal bowel sounds Extremities: no cyanosis, no edema Skin: normal turgor, no rashes Neurological: cranial nerve grossly intact Neurological - other findings: Left arm weakness-Power 3/5 Musculoskeletal: normal tone Psychiatric: normal affect, normal behavior, A&O x 3 Hosp A/P (1) Intracranial mass Code(s): R90.0 - INTCRN SPACE-OCCUPYING LESION FOUND ON DX IMAGING OF CNSL Status: Acute (2) Left arm weakness Code(s): R29.898 - OT SYMPTOMS AND SIGNS INVOLVING THE MUSCULOSKELETAL SYSTEM Status: Acute (3) Unsteady gait Code(s): R26.81 - UNSTEADINESS ON FEET Status: Acute (4) Afib Code(s): I48.91 - UNSPECIFIED ATRIAL FIBRILLATION Status: Chronic Qualifiers: Atrial fibrillation type: chronic (5) CAD (coronary artery disease) Code(s): I25.10 - ATHSCL HEART DISEASE OF [place] CORONARY ARTERY W/O ANG PCTRS Status: Chronic Qualifiers: Coronary Disease-Associated Artery/Lesion type: [place] artery [place] vs. transplanted heart: [place] heart Associated angina: without angina Qualified Code(s): I25.10 - Atherosclerotic heart disease of [place] coronary artery without angina pectoris (6) Pacemaker Code(s): Z95.0 - PRESENCE OF CARDIAC PACEMAKER Status: Chronic (7) HTN (hypertension) Code(s): I10 - ESSENTIAL (PRIMARY) HYPERTENSION Status: Chronic Qualifiers: Hypertension type: essential hypertension Qualified Code(s): I10 - Essential (primary) hypertension - Plan CT head reported intracerebral mass with surrounding vasogenic edema. Patient seen and evaluated by neurosurgery. Continue IV steroid. Patient plan for MRI of the brain to further characterize the mass. Noted patient has a pacemaker. Need to assess pacemaker compatibility with MRI.
[2020-09-04] MEDS: Carvedilol 25 MG TAB PO SCH ×2 (12:04→20:12)
--- NOTE | 2020-09-04 19:19 | PDOC.BPN ---
- Brief Progress Note Encounter Date: 09/04/20 Encounter Time: 03:20 I contacted Cardiology office, Spoke to Dr. Mueller who mentioned he could not bring patient's medical records up. I contacted Dr. Heart who advised to contact pacemaker heating repair technician. Patient's pacemaker card checked and noted to be [employer]. Nurse tried to contact a heating repair technician at [employer]. Nurse stated he was told no heating repair technician is available this weekend. Patient's pacemaker looked up at [employer] website using it's serial number and noted it is not MRI conditional so cannot perform MRI of the brain. This is communicated to Ml and Dr. Ibanez. Awaiting further recommendation. Will consult Neurology for input regarding the intracerebral mass.
[2020-09-05] MEDS: Dexamethasone 4 mg/ml Vial SLOW IVP SCH ×5 (00:20→23:15)
[2020-09-05 05:58] LABS: #Lymphocytes 1.4 thou/uL (1.20-3.40); #Monocytes 0.3 thou/uL (0.11-0.59); #Neutrophils 7.8 thou/uL (1.40-6.50); %Basophils 0.2 % (0.0-1.0); %Eosinophils 0.1 % (0.0-10.0); %Lymphocytes 14.5 % (21.0-51.0); %Monocytes 2.9 % (0.0-10.0); %Neutrophils 82.4 % (42.0-75.0); Hemoglobin 13.3 g/dL (14.0-18.0); Mean Corpuscular HGB CONC 32.1 g/dL (32.0-36.0); Mean Corpuscular Hemoglobin 30.3 pg (27.0-31.0); Mean Corpuscular Volume 94.7 fL (78.0-98.0); Mean Platelet Volume 8.9 fL (7.4-10.4); Platelet Count 141 thou/uL (130-400); RBC Distribution Width 13.7 % (11.5-14.5); Red Blood Cell (RBC) Count 4.39 mill/uL (4.70-6.10); White Blood Cell (WBC) Count 9.4 thou/uL (4.8-10.8)
[2020-09-05 06:24] LABS: Anion Gap 15 mmol/L (10-20); BUN (Urea Nitrogen) 20 mg/dL (8.4-25.7); Calc. Creatinine Clearance 87 mL/min (70-130); Calcium 8.8 mg/dL (7.8-10.44); Carbon Dioxide 23 mmol/L (23-31); Chloride 104 mmol/L (98-107); Glucose 163 mg/dL (83-110); Sodium 138 mmol/L (136-145)
[2020-09-05] MEDS: Pantoprazole 40 MG VIAL IVP SCH ×2 (08:46→20:01)
[2020-09-05] MEDS: Allopurinol 300 MG TAB PO SCH (08:46)
[2020-09-05] MEDS: Rosuvastatin 20 MG TAB PO SCH (08:46)
--- NOTE | 2020-09-05 09:39 | PDOC.HOSPP ---
- Subjective Encounter Date: 09/05/20 Encounter Time: 09:38 Subjective: Follow-up left arm weakness. Patient report increased numbness in the left arm but no change in weakness. He has no other complaints. - Objective Vital Signs & Weight: Vital Signs (12 hours) Temp Pulse Resp BP Pulse Ox 09/05/20 08:50 97.8 F 105 H 18 120/80 100 09/05/20 05:00 97.8 F 97 16 104/68 98 09/05/20 00:00 97.6 F 100 18 119/70 100 Weight Weight 212 lb 8 oz I&O: 09/04/20 09/05/20 09/06/20 06:59 06:59 06:59 Intake Total 620 1260 Balance 620 1260 Result Diagrams: 09/05/20 05:29 09/05/20 05:29 Hospitalist ROS - Medication Medications: Active Medications Generic Name Dose Route Start Last Admin Trade Name Freq PRN Reason Stop Dose Admin Allopurinol 300 mg 09/04/20 09:00 09/05/20 08:46 Allopurinol 300 Mg Tab PO 300 mg DAILY [place] Administration Carvedilol 25 mg 09/03/20 21:00 09/04/20 20:12 Carvedilol 25 Mg Tab PO 25 mg 1200,2100 [place] Administration Dexamethasone 4 mg 09/03/20 23:59 09/05/20 05:26 Dexamethasone 4 Mg/Ml Vial SLOW IVP 4 mg Q6HR [place] Administration Isosorbide Mononitrate 120 mg 09/04/20 09:00 09/05/20 08:46 Isosorbide Mononitrate Er 60 Mg Tab PO 120 mg DAILY [place] Administration Pantoprazole Sodium 40 mg 09/03/20 21:00 09/05/20 08:46 Pantoprazole 40 Mg Vial IVP 40 mg Q12HR [place] Administration Rosuvastatin Calcium 40 mg 09/04/20 09:00 09/05/20 08:46 Rosuvastatin 20 Mg Tab PO 40 mg DAILY [place] Administration Sodium Chloride 10 ml 09/03/20 21:00 09/05/20 08:46 Flush - Normal Saline 10 Ml Syringe IVF 10 ml Q12HR [place] Administration Sodium Chloride 10 ml 09/03/20 18:45 09/04/20 05:50 Flush - Normal Saline 10 Ml Syringe IVF 10 ml PRN PRN Administration Saline Flush - Exam General Appearance: NAD, awake alert Eye: PERRL, anicteric sclera Neck: supple Heart: RRR, normal peripheral pulses Respiratory: no wheezes Gastrointestinal: soft, non-distended Extremities: no cyanosis, no edema Skin: no rashes Neurological: cranial nerve grossly intact Neurological - other findings: Left upper extremity weakness-3/5 Musculoskeletal: normal tone, no muscle wasting Psychiatric: normal affect, normal behavior, A&O x 3 Hosp A/P (1) Intracranial mass Code(s): R90.0 - INTCRN SPACE-OCCUPYING LESION FOUND ON DX IMAGING OF CNSL Status: Acute (2) Left arm weakness Code(s): R29.898 - OTH SYMPTOMS AND SIGNS INVOLVING THE MUSCULOSKELETAL SYSTEM Status: Acute (3) Unsteady gait Code(s): R26.81 - UNSTEADINESS ON FEET Status: Acute (4) Afib Code(s): I48.91 - UNSPECIFIED ATRIAL FIBRILLATION Status: Chronic Qualifiers: Atrial fibrillation type: chronic (5) CAD (coronary artery disease) Code(s): I25.10 - ATHSCL HEART DISEASE OF [place] CORONARY ARTERY W/O ANG PCTRS Status: Chronic Qualifiers: Coronary Disease-Associated Artery/Lesion type: [place] artery [place] vs. transplanted heart: [place] heart Associated angina: without angina Qualified Code(s): I25.10 - Atherosclerotic heart disease of [place] coronary artery without angina pectoris (6) Pacemaker Code(s): Z95.0 - PRESENCE OF CARDIAC PACEMAKER Status: Chronic (7) HTN (hypertension) Code(s): I10 - ESSENTIAL (PRIMARY) HYPERTENSION Status: Chronic Qualifiers: Hypertension type: essential hypertension Qualified Code(s): I10 - E ssential (primary) hypertension - Plan MRI of the brain cannot be performed due to incompatible pacemaker. Continue IV steroid. Neurology consulted for their input. Neurosurgery to follow Patient is currently asymptomatic from the COVID-19. Continue PT. Discussed with radiologist. CT head with and without contrast may be helpful to further evaluate the ma brain lesion. CT head with and without contrast ordered. Also consulted oncology for their input.
--- NOTE | 2020-09-05 10:05 | CON ---
DATE OF CONSULTATION: 09/05/2020 CONSULTING PHYSICIAN: Hospitalist Service. IMPRESSION: Right frontal mass strongly suggestive of a tumor. PLAN: 1. CT scan of the brain with contrast. 2. Neurosurgery will determine course of action from here. HISTORY OF PRESENT ILLNESS: Mr. Ramesh is an 80-year-old gentleman, who presented with subacute weakness on the left side. It was not associated with any slurred speech or headache. His CT of the brain showed a hypodense mass in the right frontal lobe with some surrounding edema. He has no past history of any type of malignancy. He has a defibrillator in place and is not capable of having an MRI. He was on aspirin and Eliquis, which have been stopped. Neurosurgery has seen the patient for evaluation, has plan of action. He denies any seizure-like episodes. PAST HISTORY: Cardiac disease with defibrillator in place. ALLERGIES: PER CHART. SOCIAL HISTORY: No tobacco or alcohol use. FAMILY HISTORY: Noncontributory. REVIEW OF SYSTEMS: Ten-system review of systems is otherwise negative. PHYSICAL EXAMINATION: GENERAL: He is a healthy-appearing elderly man, sitting up in bed, in no distress. vital signs: Stable. He is afebrile. HEENT: Pupils equal and reactive. Conjunctivae clear. Oropharynx clear. NECK: Supple. No lymphadenopathy. ABDOMEN: Soft and nontender. EXTREMITIES: No cyanosis or edema. SKIN: No lesions. NEUROLOGIC: He was alert and cooperative. His speech was fluent and clear. Cranial nerves were intact. Motor exam showed some sluggish movement on the left as compared to the right. He tended to have a fix with rapid alternating movements on the left side. Sensation was subjectively altered a bit in the left arm as compared to the right. No abnormal movements were seen. Plantar response was upgoing on the left and downgoing on the right. He can walk independently, though he has a slight tendency to drag his left leg. IMAGING STUDIES: Reviewed. SUMMARY: Elderly gentleman with lesion with edema in the right frontal lobe. He has no past history of any malignancy. 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 He has not had any seizure-like episodes. I do not have anything to offer at this point. Job ID: [id number]
[2020-09-05] MEDS ORDERED: Iopamidol-370 76% 500 ML 1 ML ONE (11:59)
[2020-09-05] MEDS: Carvedilol 25 MG TAB PO SCH ×2 (12:58→20:02)
--- NOTE | 2020-09-05 17:33 | CT ---
CT head without and with IV contrast HISTORY: Brain tumor. Pacemaker not compatible with MRI. COMPARISON: Noncontrast CT 09/03/2020. FINDINGS: Centered within the peripheral right centrum semiovale, the heterogeneous low density mass rounded mass that is 1.4 cm diameter shows slightly heterogeneous enhancement of the peripheral hyperdense rim. Satellite nodules project anterior and posterior to the dominant lesion, 0.6 cm and 0 .8 cm greatest diameters. Moderate amount of surrounding vasogenic edema with slight effacement of the overlying sulci. Septum pellucidum is midline. No other enhancing brain lesions. Mucosal thickening within the posterior aspect of the right sphenoid sinus. Calcification of the nadia rial structures. IMPRESSION : Peripheral enhancement with satellite nodules involving the right central semiovale mass. Neoplasm fa vored over abscess.
--- NOTE | 2020-09-06 05:28 | CT ---
Exam: Head CT without contrast HISTORY: Weakness. Patient fell at home.. COMPARISON: 09/19/2015 FINDINGS: Hemorrhage: No intraparenchymal hemorrhage or extra-axial hematoma. Brain parenchyma: There appears be vasogenic edema involving the anterior right centrum semiovale ova le. There is a intra-axial lesion measuring 1.4 x 1.1 cm. Ventricular system: Ventricles and sulci are patent and symmetric. Calvarium: Intact. Sinuses and mastoid air cells: Right sphenoid sinus disease. IMPRESSION: 1. Intra-axial mass in the right centrum semiovale ovale, incompletely evaluated. Pre and postcontras t brain MRI is recommended.
[2020-09-06] MEDS: Dexamethasone 4 mg/ml Vial SLOW IVP SCH ×3 (05:34→17:36)
[2020-09-06] MEDS: Rosuvastatin 20 MG TAB PO SCH (08:10)
[2020-09-06] MEDS: Allopurinol 300 MG TAB PO SCH (08:10)
[2020-09-06] MEDS: Pantoprazole 40 MG VIAL IVP SCH ×2 (08:11→21:58)
[2020-09-06] MEDS: Carvedilol 25 MG TAB PO SCH ×2 (12:10→21:58)
--- NOTE | 2020-09-06 12:29 | PDOC.HOSPP ---
- Subjective Encounter Date: 09/06/20 Encounter Time: 09:15 Subjective: Patient is sitting in the chair nearby. Discussed with RN. Plan to get the MRI scan. They will contact the pacemaker cardiac monitor technician and see whether anything can be done. CT with contrast showed a mass in the right frontal lobe abscess cannot be ruled out completely - Objective Vital Signs & Weight: Vital Signs (12 hours) Temp Pulse Pulse Resp BP BP BP 09/06/20 10:33 102 H 126/94 H 127/87 09/06/20 08:00 98.1 F 98 15 139/89 09/06/20 03:50 97.8 F 93 16 127/83 Pulse Ox 09/06/20 10:33 09/06/20 08:00 97 09/06/20 03:50 97 Weight Weight 212 lb 8 oz I&O: 09/05/20 09/06/20 09/07/20 06:59 06:59 06:59 Intake Total 1260 840 Balance 1260 840 Result Diagrams: 09/05/20 05:29 09/05/20 05:29 Additional Labs: Accuchecks 09/05/20 20:13 POC Glucose 323 H Hospitalist ROS - Medication Medications: Active Medications Generic Name Dose Route Start Last Admin Trade Name Freq PRN Reason Stop Dose Admin Allopurinol 300 mg 09/04/20 09:00 09/06/20 08:10 Allopurinol 300 Mg Tab PO 300 mg DAILY [facility] Administration Carvedilol 25 mg 09/03/20 21:00 09/06/20 12:10 Carvedilol 25 Mg Tab PO 25 mg 1200,2100 [facility] Administration Dexamethasone 10 mg 09/06/20 12:00 09/06/20 12:10 Dexamethasone 4 Mg/Ml Vial SLOW IVP 10 mg Q6HR [place] Administration Isosorbide Mononitrate 120 mg 09/04/20 09:00 09/06/20 08:10 Isosorbide Mononitrate Er 60 Mg Tab PO 120 mg DAILY [facility] Administration Pantoprazole Sodium 40 mg 09/03/20 21:00 09/06/20 08:11 Pantoprazole 40 Mg Vial IVP 40 mg Q12HR [facility] Administration Rosuvastatin Calcium 40 mg 09/04/20 09:00 09/06/20 08:10 Rosuvastatin 20 Mg Tab PO 40 mg DAILY [facility] Administration Sodium Chloride 10 ml 09/03/20 21:00 09/06/20 08:11 Flush - Normal Saline 10 Ml Syringe IVF 10 ml Q12HR [place] Administration Sodium Chloride 10 ml 09/03/20 18:45 09/05/20 23:15 Flush - Normal Saline 10 Ml Syringe IVF 10 ml PRN PRN Administration Saline Flush - Exam General Appearance: NAD, awake alert, ill appearing Eye: PERRL ENT: normocephalic atraumatic Neck: supple Heart: RRR, II/IV Respiratory: CTAB, normal chest expansion Gastrointestinal: soft, normal bowel sounds Neurological: cranial nerve grossly intact, no focal deficits Psychiatric: normal affect, normal behavior, A&O x 3 Hosp A/P - Plan ntracranial mass Code(s): R90.0 - INTCRN SPACE-OCCUPYING LESION FOUND ON DX IMAGING OF CNSL Status: Acute (2) Left arm weakness Code(s): R29.898 - OTH SYMPTOMS AND SIGNS INVOLVING THE MUSCULOSKELETAL SYSTEM Status: Acute (3) Unsteady gait Code(s): R26.81 - UNSTEADINESS ON FEET Status: Acute (4) Afib holding eliquis (5) CAD (coronary artery disease) Code(s): I25.10 - ATHSCL HEART DISEASE OF [place] CORONARY ARTERY W/O ANG PCTRS Status: Chronic Qualifiers: Coronary Disease-Associated Artery/Lesion type: [place] artery [place] vs. transplanted heart: [place] heart Associated angina: without angina Qualified Code(s): I25.10 - Atherosclerotic heart disease of [place] coronary artery without angina pectoris (6) Pacemaker Code(s): Z95.0 - PRESENCE OF CARDIAC PACEMAKER Status: Chronic (7) HTN (hypertension) Code(s): I10 - ESSENTIAL (PRIMARY) HYPERTENSION Status: Chronic Qualifiers: Hypertension type: essential hypertension Qualified Code(s): I10 - E ssential (primary) hypertension - Plan MRI of the brain cannot be performed due to incompatible pacemaker. The differentials for his right frontal lobe mass intraparenchymal hemorrhage versus abscess versus primary [employer] lesion versus metastatic lesions like melanoma -No aspirin or Eliquis -Decadron 10 mg IV every 6 hours, Protonix daily -Neurosurgery is following with us pending MRI scan -Neurology have no further recommendations patient has no episodes of seizure. Will follow closely. Abscess may not be likely as he has no white count fever and mentation welsh he seems to be at baseline. Also consulted oncology for their input. -asymptomatic from the COVID-19. Hyperlipidemia on Lipitor
--- NOTE | 2020-09-06 16:20 | PQF ---
CLINICAL DOCUMENTATION CLARIFICATION FORM: Dear Dr. Susan Dockery Date / Time: 09/06/20, 1600 Please exercise your independent, professional judgment in responding to the clarification form. Clinical indicators are provided on the bottom of this form for your review. Please check appropriate box(es): [ ] Cerebral edema Due to: [ x ] Intracranial tumor [ ] Intracranial hematoma [ ] Compression of the brain [ ] Other diagnosis [ ] Unable to determine In addition, please specify: Present on Admission (POA): [ x] Yes [ ] No [ ] Unable to determine For continuity of documentation, please document condition throughout progress notes and discharge summary. Thank You. To be completed by CDI/Coding staff for physician review: CLINICAL INDICATORS - SIGNS / SYMPTOMS / LABS / RESULTS AND LOCATION IN EMR Left side weakness, most likely secondary to a new mass (H&P/Bhimji) 09/05 CT head reported intracerebral mass with surrounding vasogenic edema ( PN/Baidoo) 09/04 Elderly gentleman with lesion with edema in the right frontal lobe. ( Consult/Maraist) 09/05 RISK FACTORS / RESULTS AND LOCATION IN EMR Brain mass H&P/Bhimji) 09/05 TREATMENTS / RESULTS AND LOCATION IN EMR Neurology consult ([place]) 09/[address]( 09/03) CDS Signature: Kemi Abraham RN Phone #: [phone] Date: 09/06/2020 This is a permanent part of the Medical Record [facility]
[2020-09-07] MEDS: Dexamethasone 4 mg/ml Vial SLOW IVP SCH ×4 (00:22→17:45)
--- NOTE | 2020-09-07 09:07 | CT ---
CT of the head with and without contrast: 09/07/2020 COMPARISON: 09/05/2020 HISTORY: Evaluate right-sided brain tumor TECHNIQUE: Axial CT imaging at 1.25 mm intervals from the vertex through the skull base with and with out IV contrast. FINDINGS: The noncontrast enhanced imaging demonstrates no intracranial hemorrhage. There is atherosc lerotic calcification involving the distal vertebral arteries bilaterally and the bilateral cavernous carotid arteries. There is partial opacification of the sphenoid sinus on the right with secretions of heterogeneous de nsity, unchanged. There is no discrete lesion within the brainstem or the posterior fossa. No discrete lesion is evident within the left cerebral hemisphere. There is a hypodense lesion with subtle rim enhancement within the posterior medial aspect of the rig ht frontal lobe, best seen on axial image 110. It is better defined on the 09/05/2020 examination. This lesion measures approximately 1.4 cm in greatest transverse dimension and there is an adjacent s maller satellite lesion along the anterior superior margin, better defined on prior imaging. There is mild surrounding vasogenic edema which appears improved. IMPRESSION: Posterior medial right frontal lobe ring-enhancing lesion with surrounding vasogenic bella a measuring in the 1.4 cm range. A smaller adjacent satellite nodule is suspected, better seen on the 09/05/2020 exam. No intracranial hemorrhage.
[2020-09-07] MEDS: Rosuvastatin 20 MG TAB PO SCH (09:10)
[2020-09-07] MEDS: Allopurinol 300 MG TAB PO SCH (09:11)
[2020-09-07] MEDS: Pantoprazole 40 MG VIAL IVP SCH ×2 (09:11→21:45)
[2020-09-07] MEDS ORDERED: Iopamidol-370 76% 500 ML 1 ML ONE (10:07)
--- NOTE | 2020-09-07 10:14 | PRG ---
DATE OF SERVICE: Neurosurgery Progress Note. I visited with Mr. Ramesh today. We talked about the plan for the intracranial lesion. We have more information since last weekend. First, his cardiac pacemaker is not definitively compatible with MRI scanning. Second, he has a positive clothed test but never had any symptoms from it. With this information, I do not think we are going to have the opportunity to get any more data on his brain anatomy. As such, I recommended a stereotactic biopsy with a 1 to 2% risk. That stereotactic biopsy procedure could be performed Sunday. Given his Eliquis and aspirin doses on the , I think the would be the earliest I feel comfortable doing that procedure. We have made arrangements for it already. He is going to speak with his and treatment team about that. If he makes it through the biopsy with minimal effect, he can be discharged as soon as Sunday or Sunday. We did have a treatment plan based on biopsy information. That treatment could involve craniotomy or chemoradiotherapy. The lesion is in the depth of the motor strip and just anterior to it on the right side. As such, it carries some enhanced risk of craniotomy, leaving him with hemiplegia. That will have to be weighed into our decision after the biopsy results are available. Job ID: [id number] [facility]
[2020-09-07] MEDS: Carvedilol 25 MG TAB PO SCH ×2 (11:28→21:45)
--- NOTE | 2020-09-07 12:21 | PDOC.HOSPP ---
- Subjective Encounter Date: 09/07/20 Encounter Time: 09:20 Subjective: Patient. Well he has no acute complaints. I talked to radiation oncologist, he would likely see him today - Objective Vital Signs & Weight: Vital Signs (12 hours) Temp Pulse Resp BP BP Pulse Ox 09/07/20 11:40 97.6 F 86 18 146/95 H 97 09/07/20 07:27 98.1 F 103 H 17 144/97 H 97 09/07/20 04:00 98.1 F 99 18 141/94 H 97 Weight Weight 212 lb 8 oz I&O: 09/06/20 09/07/20 09/08/20 06:59 06:59 06:59 Intake Total 840 720 Balance 840 720 Result Diagrams: 09/05/20 05:29 09/05/20 05:29 Hospitalist ROS - Medication Medications: Active Medications Generic Name Dose Route Start Last Admin Trade Name Freq PRN Reason Stop Dose Admin Allopurinol 300 mg 09/04/20 09:00 09/07/20 09:11 Allopurinol 300 Mg Tab PO 300 mg DAILY [facility] Administration Carvedilol 25 mg 09/03/20 21:00 09/07/20 11:28 Carvedilol 25 Mg Tab PO 25 mg 1200,2100 [facility] Administration Dexamethasone 10 mg 09/06/20 12:00 09/07/20 11:28 Dexamethasone 4 Mg/Ml Vial SLOW IVP 10 mg Q6HR [place] Administration Isosorbide Mononitrate 120 mg 09/04/20 09:00 09/07/20 09:10 Isosorbide Mononitrate Er 60 Mg Tab PO 120 mg DAILY [facility] Administration Pantoprazole Sodium 40 mg 09/03/20 21:00 09/07/20 09:11 Pantoprazole 40 Mg Vial IVP 40 mg Q12HR [place] Administration Rosuvastatin Calcium 40 mg 09/04/20 09:00 09/07/20 09:10 Rosuvastatin 20 Mg Tab PO 40 mg DAILY [place] Administration Sodium Chloride 10 ml 09/03/20 21:00 09/07/20 09:11 Flush - Normal Saline 10 Ml Syringe IVF 10 ml Q12HR [place] Administration Sodium Chloride 10 ml 09/03/20 18:45 09/05/20 23:15 Flush - Normal Saline 10 Ml Syringe IVF 10 ml PRN PRN Administration Saline Flush Hospitalist Exam Vitals: Vital Signs (12 hours) Temp Pulse Resp BP BP Pulse Ox 09/07/20 11:40 97.6 F 86 18 146/95 H 97 09/07/20 07:27 98.1 F 103 H 17 144/97 H 97 09/07/20 04:00 98.1 F 99 18 141/94 H 97 Weight Weight 212 lb 8 oz General Appearance: NAD, awake alert Eye: PERRL ENT: normocephalic atraumatic Neck: supple Heart: RRR, normal peripheral pulses Respiratory: CTAB, normal chest expansion Gastrointestinal: soft, normal bowel sounds Neurological: cranial nerve grossly intact, no focal deficits Psychiatric: normal affect, normal behavior, A&O x 3 Hosp A/P - Plan ntracranial mass Code(s): R90.0 - INTCRN SPACE-OCCUPYING LESION FOUND ON DX IMAGING OF CNSL Status: Acute (2) Left arm weakness Code(s): R29.898 - OTH SYMPTOMS AND SIGNS INVOLVING THE MUSCULOSKELETAL SYSTEM Status: Acute (3) Unsteady gait Code(s): R26.81 - UNSTEADINESS ON FEET Status: Acute (4) Afib holding eliquis (5) CAD (coronary artery disease) Code(s): I25.10 - ATHSCL HEART DISEASE OF [place] CORONARY ARTERY W/O ANG PCTRS Status: Chronic Qualifiers: Coronary Disease-Associated Artery/Lesion type: [place] artery [place] vs. transplanted heart: [place] heart Associated angina: without angina Qualified Code(s): I25.10 - Atherosclerotic heart disease of [place] coronary artery without angina pectoris (6) Pacemaker Code(s): Z95.0 - PRESENCE OF CARDIAC PACEMAKER Status: Chronic (7) HTN (hypertension) Code(s): I10 - ESSENTIAL (PRIMARY) HYPERTENSION Status: Chronic Qualifiers: Hypertension type: essential hypertension Qualified Code(s): I10 - Essential (primary) hypertension - Plan MRI of the brain cannot be performed due to incompatible pacemaker. The differentials for his right frontal lobe mass intraparenchymal hemorrhage versus abscess versus primary LEASE BUYER lesion versus metastatic lesions like melanoma -No aspirin or Eliquis -Decadron 10 mg IV every 6 hours, Protonix daily -Neurosurgery is following with us pending MRI scan -Neurology have no further recommendations patient has no episodes of seizure. Will follow closely. Abscess may not be likely as he has no white count fever and mentation welsh he seems to be at baseline. Also consulted oncology for their input. -asymptomatic from the COVID-19. Hyperlipidemia on Lipitor MRI cannot be done due to pacemaker. Plan for stereotactic biopsy on Risks and benefits of the craniotomy has been discussed by the neurosurgery Radiation oncology to visit him today.
--- NOTE | 2020-09-07 13:16 | CON ---
DATE OF CONSULTATION: 09/07/2020 REASON FOR CONSULTATION: Mr. Ramesh is an 80-year-old male who has just been diagnosed with an intracranial mass. Tissue diagnosis has not yet been obtained. I was asked to see him to discuss Oncologic/Radiation Oncology recommendations. HISTORY OF PRESENT ILLNESS: The entirety of this consult was done by telephone because the patient is COVID-19 positive on testing even though he is asymptomatic. Since I am not directly involved in his current care and with the patient population that I service, the decision was made to do this consultation entirely by telephone to preserve PPE also. I have reviewed his chart and images all in person. Mr. Ramesh tells me that he was doing well until recently when he began experiencing left-sided weakness. Apparently, this gradually worsened over several weeks and he was seen in the emergency room because of his left-sided weakness. This led to a CT scan of the head, which showed some an area of vasogenic edema and a mass on the right side of the brain measuring 1.4 cm. He was admitted for further workup and evaluation. He did undergo a CT scan of the head with contrast. This showed the lesion to measure 1.4 cm in the right centrum semiovale. There was possible satellite nodules anterior and posterior to the dominant lesion. No other lesion was identified. CT of the chest, abdomen, and pelvis showed no suspicious lesion or possible primary site. He has seen Dr. Ibanez and his Eliquis and aspirin have been on hold for possible biopsy/surgery. Per the patient, biopsy is planned for Sunday. He has been started on dexamethasone and his left-sided weakness has improved some. He is able to ambulate. He denies any headaches or nausea or vomiting. He denies any pain in other locations or recent weight loss. He voices no other complaints. PAST MEDICAL HISTORY: 1. Coronary artery disease. 2. Chronic atrial fibrillation. 3. Cardiomyopathy. 4. Hypercholesterolemia. 5. Hypertension. 6. Gout. 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 8. Skin cancer removed from the arm more than 20 years ago, which he was told it was a carcinoma and not melanoma. He has had no skin cancers since then. 9. Status post pacemaker/defibrillator placement. 10. Status post hernia repair. MEDICATIONS: 1. Allopurinol. 2. Coreg. 3. Decadron. 4. Imdur. 5. Protonix. 6. Crestor. 7. Senokot S. ALLERGIES: NO KNOWN MEDICAL ALLERGIES. SOCIAL HISTORY: He did smoke a pipe many years ago, but has not smoked for quite some time. He drinks socially, but has not had alcohol since having his pacemaker placed. He lives with his here in town. FAMILY HISTORY: His father from heart disease at age 67. His mother at age 84 and had a history of skin cancer. He has several other family members with heart disease. There is no other family member with cancer. REVIEW OF SYSTEMS: A 12-system review of systems was performed with the patient by me and is otherwise negative. He has had no difficulty with urination or with blood in the stool. He has no shortness of breath. PHYSICAL EXAMINATION: VITAL SIGNS: Height is 6 feet, weight 212 pounds. Blood pressure is 144/97, pulse is 103, respirations are 17, temperature is 98.1, O2 saturation is 97% on room air. Again, remainder of physical exam was not performed as the entirety of the visit was done by telephone. LABORATORY DATA: CBC revealed a white blood cell count of 9400 with a hemoglobin of 13.3, hematocrit of 41.5, and platelet count of 141,000. Chemistry showed normal electrolytes. RADIOLOGIC DATA: CT scan of the head and CT scan of the chest, abdomen, and pelvis were all personally reviewed. CT scan of the head did show 1.4 cm contrast-enhancing lesion in the right centrum semiovale. There are probable satellite nodules directly anterior and posterior to the dominant lesion, although they are somewhat contiguous and alternatively this could just be an irregularly-shaped lesion. There was surrounding vasogenic edema. No other lesion was identified in the brain. No evidence of primary site was seen in the chest, abdomen, and pelvis or evidence of additional metastatic disease. ASSESSMENT: Mr. 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 This could be a primary brain tumor such as a glioblastoma or alternatively could represent metastatic disease. Dr. Ibanez has raised the possibility that this could be resolving hemorrhage, although it is also less likely to be an abscess. Again, malignancy remains the primary concern. PLAN: From an oncologic perspective, there are no additional recommendations at this time. We do need tissue diagnosis to know how to proceed with treatment. Primary brain tumors versus metastasis are obviously treated quite differently. Unfortunately, the patient is not able to have an MRI to further characterize the brain lesion because of his pacemaker/defibrillator. Dr. Ibanez is planning to proceed with a biopsy/surgery in the near future according to the patient. Apparently, this is likely going to be on Sunday once he has been off his anticoagulants for the appropriate length of time. We will have additional recommendations to make once tissue diagnosis has been obtained. This will take several days after the biopsy. From my perspective, the patient can be discharged home when appropriate and we can follow this up further as an outpatient. Thank you for this interesting consultation. Job ID: [id number] [facility]ENTERGuzman
[2020-09-07] MEDS ORDERED: Nitroglycerin 0.4 MG TAB (25 Tab Bottle) SL PRN (13:35)
[2020-09-07] MEDS: Sacubitril 49 MG/Valsartan 51 MG TABLET PO SCH (21:45)
[2020-09-08] MEDS: Dexamethasone 4 mg/ml Vial SLOW IVP SCH ×4 (01:11→18:27)
[2020-09-08] MEDS: Pantoprazole 40 MG VIAL IVP SCH ×2 (08:39→20:32)
[2020-09-08] MEDS: Rosuvastatin 20 MG TAB PO SCH (08:39)
[2020-09-08] MEDS: Sacubitril 49 MG/Valsartan 51 MG TABLET PO SCH ×2 (08:39→20:32)
[2020-09-08] MEDS: Allopurinol 300 MG TAB PO SCH (08:39)
[2020-09-08] MEDS: Carvedilol 25 MG TAB PO SCH ×2 (11:13→20:31)
--- NOTE | 2020-09-08 13:15 | PDOC.HOSPP ---
- Subjective Encounter Date: 09/08/20 Encounter Time: 09:30 Subjective: Patient seen this morning he was in the bathroom. He is doing very well. He has no acute complaints. Dr. Flaherty visited him. - Objective Vital Signs & Weight: Vital Signs (12 hours) Temp Pulse Resp BP Pulse Ox 09/08/20 11:38 96.7 F L 101 H 16 126/85 100 09/08/20 09:09 97.4 F L 59 L 18 116/76 98 09/08/20 04:00 98.2 F 99 14 126/86 98 Weight Weight 212 lb 8 oz I&O: 09/07/20 09/08/20 09/09/20 06:59 06:59 06:59 Intake Total 720 840 Balance 720 840 Result Diagrams: 09/05/20 05:29 09/05/20 05:29 Hospitalist ROS - Medication Medications: Active Medications Generic Name Dose Route Start Last Admin Trade Name Freq PRN Reason Stop Dose Admin Allopurinol 300 mg 09/04/20 09:00 09/08/20 08:39 Allopurinol 300 Mg Tab PO 300 mg DAILY [place] Administration Carvedilol 25 mg 09/03/20 21:00 09/08/20 11:13 Carvedilol 25 Mg Tab PO 25 mg 1200,2100 [facility] Administration Dexamethasone 10 mg 09/06/20 12:00 09/08/20 11:13 Dexamethasone 4 Mg/Ml Vial SLOW IVP 10 mg Q6HR [place] Administration Isosorbide Mononitrate 120 mg 09/04/20 09:00 09/08/20 08:40 Isosorbide Mononitrate Er 60 Mg Tab PO 120 mg DAILY [facility] Administration Pantoprazole Sodium 40 mg 09/03/20 21:00 09/08/20 08:39 Pantoprazole 40 Mg Vial IVP Not Given Q12HR [facility] Rosuvastatin Calcium 40 mg 09/04/20 09:00 09/08/20 08:39 Rosuvastatin 20 Mg Tab PO 40 mg DAILY [facility] Administration Sacubitril/Valsartan 2 tab 09/07/20 21:00 09/08/20 08:39 Sacubitril 49 Mg/Valsartan 51 Mg Tablet PO 2 tab BID [place] Administration Sodium Chloride 10 ml 09/03/20 21:00 09/08/20 08:40 Flush - Normal Saline 10 Ml Syringe IVF 10 ml Q12HR [place] Administration Sodium Chloride 10 ml 09/03/20 18:45 09/05/20 23:15 Flush - Normal Saline 10 Ml Syringe IVF 10 ml PRN PRN Administration Saline Flush Hospitalist Exam Vitals: Vital Signs (12 hours) Temp Pulse Resp BP Pulse Ox 09/08/20 11:38 96.7 F L 101 H 16 126/85 100 09/08/20 09:09 97.4 F L 59 L 18 116/76 98 09/08/20 04:00 98.2 F 99 14 126/86 98 Weight Weight 212 lb 8 oz General Appearance: NAD, awake alert Eye: PERRL ENT: normocephalic atraumatic Neck: supple Heart: RRR, normal peripheral pulses Respiratory: CTAB, normal chest expansion Gastrointestinal: soft, normal bowel sounds Neurological: cranial nerve grossly intact, no focal deficits Psychiatric: A&O x 3 Hosp A/P - Plan ntracranial mass Code(s): R90.0 - INTCRN SPACE-OCCUPYING LESION FOUND ON DX IMAGING OF CNSL Status: Acute (2) Left arm weakness Code(s): R29.898 - OTH SYMPTOMS AND SIGNS INVOLVING THE MUSCULOSKELETAL SYSTEM Status: Acute (3) Unsteady gait Code(s): R26.81 - UNSTEADINESS ON FEET Status: Acute (4) Afib holding eliquis (5) CAD (coronary artery disease) Code(s): I25.10 - ATHSCL HEART DISEASE OF [place] CORONARY ARTERY W/O ANG PCTRS Status: Chronic Qualifiers: Coronary Disease-Associated Artery/Lesion type: [place] artery [place] vs. transplanted heart: [place] heart Associated angina: without angina Qualified Code(s): I25.10 - Atherosclerotic heart disease of [place] coronary artery without angina pectoris (6) Pacemaker Code(s): Z95.0 - PRESENCE OF CARDIAC PACEMAKER Status: Chronic (7) HTN (hypertension) Code(s): I10 - ESSENTIAL (PRIMARY) HYPERTENSION Status: Chronic Qualifiers: Hypertension type: essential hypertension Qualified Code(s): I10 - Essential (primary) hypertension - Plan MRI of the brain cannot be performed due to incompatible pacemaker. The differentials for his right frontal lobe mass intraparenchymal hemorrhage versus abscess versus primary PAN RECLAIM PROCESSOR lesion versus metastatic lesions like melanoma -No aspirin or Eliquis -Decadron 10 mg IV every 6 hours, Protonix daily -Neurosurgery is following with us pending MRI scan -Neurology have no further recommendations patient has no episodes of seizure. Will follow closely. Abscess may not be likely as he has no white count fever and mentation welsh he seems to be at baseline. Also consulted oncology for their input. -asymptomatic from the COVID-19. Hyperlipidemia on Lipitor MRI cannot be done due to pacemaker. Plan for stereotactic biopsy on Risks and benefits of the craniotomy has been discussed by the neurosurgery Radiation oncology to visit him today. Stereotactic biopsy on Sunday -Follow-up with radiation oncologist as an outpatient -Aspirin and Eliquis on hold
[2020-09-08] MEDS ORDERED: Dextrose 5% in Water 1,000 ML IV PRN (21:16)
[2020-09-08] MEDS ORDERED: Dextrose 50% Abboject 50 ML SYRINGE SLOW IVP PRN (21:16)
[2020-09-08] MEDS ORDERED: HumaLOG 300 UNITS/3 ML VIAL SC PRN (21:16)
[2020-09-09] MEDS: Dexamethasone 4 mg/ml Vial SLOW IVP SCH ×5 (00:19→23:19)
[2020-09-09] MEDS: Pantoprazole 40 MG VIAL IVP SCH ×2 (09:37→20:42)
[2020-09-09] MEDS: Sacubitril 49 MG/Valsartan 51 MG TABLET PO SCH ×2 (09:37→20:42)
[2020-09-09] MEDS: Rosuvastatin 20 MG TAB PO SCH (09:37)
[2020-09-09] MEDS: Allopurinol 300 MG TAB PO SCH (09:37)
[2020-09-09] MEDS: Carvedilol 25 MG TAB PO SCH ×2 (12:44→20:42)
--- NOTE | 2020-09-09 15:43 | PDOC.HOSPP ---
- Subjective Encounter Date: 09/09/20 Encounter Time: 09:20 Subjective: Patient doing well. at bedside. Plan for biopsy tomorrow. N.p.o. at midnight. Care plan discussed with the pt and . - Objective Vital Signs & Weight: Vital Signs (12 hours) Temp Pulse Resp BP BP Pulse Ox 09/09/20 11:30 97.7 F 79 20 115/78 97 09/09/20 08:00 98.0 F 61 20 121/80 99 09/09/20 04:44 97.1 F L 85 16 119/74 94 L Weight Weight 212 lb 8 oz I&O: 09/08/20 09/09/20 09/10/20 06:59 06:59 06:59 Intake Total 840 860 Balance 840 860 Result Diagrams: 09/05/20 05:29 09/05/20 05:29 Additional Labs: Accuchecks 09/09/20 09/09/20 09/08/20 06:48 00:34 20:35 POC Glucose 177 H 194 H 315 H Hospitalist ROS - Medication Medications: Active Medications Generic Name Dose Route Start Last Admin Trade Name Freq PRN Reason Stop Dose Admin Allopurinol 300 mg 09/04/20 09:00 09/09/20 09:37 Allopurinol 300 Mg Tab PO 300 mg DAILY [place] Administration Carvedilol 25 mg 09/03/20 21:00 09/09/20 12:44 Carvedilol 25 Mg Tab PO 25 mg 1200,2100 [facility] Administration Dexamethasone 10 mg 09/06/20 12:00 09/09/20 12:44 Dexamethasone 4 Mg/Ml Vial SLOW IVP 10 mg Q6HR [place] Administration Isosorbide Mononitrate 120 mg 09/04/20 09:00 09/09/20 09:37 Isosorbide Mononitrate Er 60 Mg Tab PO 120 mg DAILY [facility] Administration Pantoprazole Sodium 40 mg 09/03/20 21:00 09/09/20 09:37 Pantoprazole 40 Mg Vial IVP 40 mg Q12HR [place] Administration Rosuvastatin Calcium 40 mg 09/04/20 09:00 09/09/20 09:37 Rosuvastatin 20 Mg Tab PO 40 mg DAILY [facility] Administration Sacubitril/Valsartan 2 tab 09/07/20 21:00 09/09/20 09:37 Sacubitril 49 Mg/Valsartan 51 Mg Tablet PO 2 tab BID [place] Administration Sodium Chloride 10 ml 09/03/20 21:00 09/09/20 09:37 Flush - Normal Saline 10 Ml Syringe IVF 10 ml Q12HR [place] Administration Sodium Chloride 10 ml 09/03/20 18:45 09/05/20 23:15 Flush - Normal Saline 10 Ml Syringe IVF 10 ml PRN PRN Administration Saline Flush Hospitalist Exam Vitals: Vital Signs (12 hours) Temp Pulse Resp BP BP Pulse Ox 09/09/20 11:30 97.7 F 79 20 115/78 97 09/09/20 08:00 98.0 F 61 20 121/80 99 09/09/20 04:44 97.1 F L 85 16 119/74 94 L Weight Weight 212 lb 8 oz General Appearance: NAD, awake alert Eye: PERRL ENT: normocephalic atraumatic Neck: supple Heart: RRR, normal peripheral pulses Respiratory: CTAB, normal chest expansion Gastrointestinal: soft, normal bowel sounds Neurological: cranial nerve grossly intact, no focal deficits Psychiatric: normal affect, normal behavior, A&O x 3 Hosp A/P - Plan ntracranial mass Code(s): R90.0 - INTCRN SPACE-OCCUPYING LESION FOUND ON DX IMAGING OF CNSL Status: Acute (2) Left arm weakness Code(s): R29.898 - OTH SYMPTOMS AND SIGNS INVOLVING THE MUSCULOSKELETAL SYSTEM Status: Acute (3) Unsteady gait Code(s): R26.81 - UNSTEADINESS ON FEET Status: Acute (4) Afib holding eliquis (5) CAD (coronary artery disease) Code(s): I25.10 - ATHSCL HEART DISEASE OF [place] CORONARY ARTERY W/O ANG PCTRS Status: Chronic Qualifiers: Coronary Disease-Associated Artery/Lesion type: [place] artery [place] vs. transplanted heart: [place] heart Associated angina: without angina Qualified Code(s): I25.10 - Atherosclerotic heart disease of [place] coronary artery without angina pectoris (6) Pacemaker Code(s): Z95.0 - PRESENCE OF CARDIAC PACEMAKER Status: Chronic (7) HTN (hypertension) Code(s): I10 - ESSENTIAL (PRIMARY) HYPERTENSION Status: Chronic Qualifiers: Hypertension type: essential hypertension Qualified Code(s): I10 - Essential (primary) hypertension - Plan MRI of the brain cannot be performed due to incompatible pacemaker. The differentials for his right frontal lobe mass intraparenchymal hemorrhage versus abscess versus primary CAREER REPRESENTATIVE lesion versus metastatic lesions like melanoma -No aspirin or Eliquis -Decadron 10 mg IV every 6 hours, Protonix daily -Neurosurgery is following with us pending MRI scan -Neurology have no further recommendations patient has no episodes of seizure. Will follow closely. Abscess may not be likely as he has no white count fever and mentation welsh he seems to be at baseline. Also consulted oncology for their input. -asymptomatic from the COVID-. Hyperlipidemia on Lipitor MRI cannot be done due to pacemaker. Plan for stereotactic biopsy on Risks and benefits of the craniotomy has been discussed by the neurosurgery Radiation oncology to visit him today. Stereotactic biopsy on Sunday -Follow-up with radiation oncologist as an outpatient -Aspirin and Eliquis on hold. Plan for biopsy tomorrow. N.p.o. at midnight. Care plan discussed with the pt and .
[2020-09-09] MEDS: HumaLOG 300 UNITS/3 ML VIAL SC PRN (17:34)
[2020-09-09 18:28] LABS: SARS-CoV-2 PCR by NAA Not Detected (NotDetected)
[2020-09-10] MEDS: Dexamethasone 4 mg/ml Vial SLOW IVP SCH ×3 (05:26→17:52)
[2020-09-10 05:34] LABS: Hemoglobin 14.3 g/dL (14.0-18.0); Mean Corpuscular Hemoglobin 30.3 pg (27.0-31.0); Mean Corpuscular Volume 94.8 fL (78.0-98.0); Mean Platelet Volume 9.7 fL (7.4-10.4); Platelet Count 130 thou/uL (130-400); RBC Distribution Width 13.8 % (11.5-14.5); Red Blood Cell (RBC) Count 4.73 mill/uL (4.70-6.10); White Blood Cell (WBC) Count 8.8 thou/uL (4.8-10.8)
[2020-09-10 05:35] LABS: PTT 22.4 sec (22.9-36.1); Prothrombin Time 13.5 sec (12.0-14.7)
[2020-09-10] MEDS ORDERED: Bacitracin Zinc Ointment 30 gm TUBE ONE (06:09)
[2020-09-10] MEDS ORDERED: Thrombin 5000 UNITS/5 ML VIAL ONE (06:09)
[2020-09-10] MEDS ORDERED: Lidocaine 0.5%/Epinephrine 1:200,000 50 ml Vial ONE (06:09)
[2020-09-10] MEDS ORDERED: Fentanyl 100 MCG/2 ML VIAL ONE ×2 (07:25→07:55)
[2020-09-10] MEDS ORDERED: CEFAZOLIN 2 GM in Premix Bag 1 BAG IVPB SCH ×2 (08:00→10:00)
[2020-09-10] MEDS ORDERED: Phenylephrine 10 MG/ML VIAL ONE (08:16)
[2020-09-10] MEDS ORDERED: SUGAMMADEX SODIUM 200 MG/2 ML VIAL ONE (09:29)
[2020-09-10] MEDS ORDERED: PACU-Morphine 4MG/ML VIAL SLOW IVP PRN (09:31)
[2020-09-10] MEDS ORDERED: Promethazine HCl 25 MG/ML VIAL SLOW IVP PRN (09:31)
[2020-09-10] MEDS ORDERED: Promethazine HCl 25 MG/ML VIAL IM PRN (09:31)
[2020-09-10] MEDS ORDERED: Meperidine HCl/PF 25 MG/ML VIAL SLOW IVP PRN (09:31)
[2020-09-10] MEDS ORDERED: PROPOFOL 200 MG/20 ML VIAL ONE (09:59)
[2020-09-10] MEDS ORDERED: Metoclopramide HCl 10 MG/2 ML VIAL ONE (09:59)
[2020-09-10] MEDS ORDERED: Lidocaine 1% PF 5 ML VIAL ONE (09:59)
[2020-09-10] MEDS ORDERED: PHENYLEPHRINE-NS 100 MCG/ML 10 ML SYRINGE ONE (09:59)
[2020-09-10] MEDS ORDERED: Calcium Chloride 1 GM/10 ML Abboject SYRINGE ONE (09:59)
[2020-09-10] MEDS ORDERED: Ondansetron PF 4 MG/2 ML Vial ONE (09:59)
[2020-09-10] MEDS ORDERED: Rocuronium Bromide 10 MG/ML (10ML VIAL) ONE (09:59)
[2020-09-10] MEDS ORDERED: Dexamethasone 4 mg/ml Vial ONE ×2 (12:52→22:41)
--- NOTE | 2020-09-10 14:07 | OP ---
DATE OF PROCEDURE: 09/10/2020 FRONT END DEVELOPER DESIGNER: Willy Castellano PA-C. PREOPERATIVE INDICATION: Make diagnosis and prevent neurological deterioration. PREOPERATIVE DIAGNOSIS: Right frontal lesion with left hemiparesis. POSTOPERATIVE DIAGNOSIS: Right frontal lesion with left hemiparesis. PROCEDURE PERFORMED: [facility] stereotactic-assisted needle biopsy of right frontal lesion. PREOPERATIVE MEDICATIONS: Ancef 2 g IV. DRAIN NUMBER: Zero. DRAIN TYPE: None. DESCRIPTION OF PROCEDURE: The patient was brought to the operating room. General endotracheal anesthesia was induced. The patient was positioned supine on the operating room table. His head was mobilized with Que[place]o pin and head of marketing, attached with the Hickman attachment to the operating table. Using the [employer] system and the preoperative Brain[facility] protocol CT scan, we generated navigational space around the patient's head by surface registration. We verified the registration with landmarks and was accurate. We then planned our biopsy trajectory with a VarioGuide program on the [employer] system. We chose the entry point where the needle would be moving medially and posteriorly through its trajectory to the lesion. With electric clippers, we shaved hair over our chosen entry point. We marked out our planned incision and infused local anesthetic under it. The scalp was sterilely prepped and draped. We opened our incision with a 10 blade knife. We controlled bleeding with bipolar cautery. We placed a self-retaining retractor. A sommer hole was placed at our entry point. We waxed the edges of the sommer hole. We then brought the VarioGuide into the field, navigated to our entry point, and placed the needle down on the surface of the brain. We then opened the dura in a cruciate fashion and saw a vein at our entry point. We then moved the entry point with a VarioGuide planning system. We repositioned the VarioGuide at the new entry point. Then, the needle entered the silverio away from any vascular structure. I then advanced the needle with a continuous navigation to the tumor. Samples were taken at the proximal edge and sent to Pathology for frozen section. Samples were taken from the center and distal edge as well and those were sent. When our colleagues in anatomic pathology confirmed that we had abnormal tissue and that represented a tumor at the end of the case. We irrigated through the biopsy needle. We placed a stylet back into the needle and withdrew it from the brain. We irrigated once again with bacitracin irrigation. We placed a CranioPlate over the sommer hole and we closed the scalp in anatomical layers. This was a clean case, no contamination. Job ID: [id number]
[2020-09-10] MEDS: Rosuvastatin 20 MG TAB PO SCH (14:30)
[2020-09-10] MEDS: Allopurinol 300 MG TAB PO SCH (14:31)
[2020-09-10] MEDS: Pantoprazole 40 MG VIAL IVP SCH ×2 (14:32→21:43)
[2020-09-10] MEDS: Sacubitril 49 MG/Valsartan 51 MG TABLET PO SCH ×2 (14:32→21:35)
[2020-09-10] MEDS: Carvedilol 25 MG TAB PO SCH ×2 (14:33→21:35)
[2020-09-10] MEDS ORDERED: Sodium Chloride 0.9% 20 ML ONE (14:34)
[2020-09-10] MEDS ORDERED: Dexamethasone 4 mg/ml Vial SLOW IVP SCH (15:00)
--- NOTE | 2020-09-10 15:25 | PDOC.HOSPP ---
- Subjective Encounter Date: 09/10/20 Encounter Time: 11:50 Subjective: Patient is status post stereotactic assisted needle biopsy of the right frontal lesion. Pending going to the ICU. Talk to the . Communicated with radiation oncologist Dr. Vernon Rob who will follow him as an outpatient for possible radiation therapy. He is recommended a Decadron dose to be reduced. I also communicated with Willy Marroquin and plan for possible discharge tomorrow, if he continued to show clinical stability. - Objective Vital Signs & Weight: Vital Signs (12 hours) Temp Pulse Resp BP Pulse Ox 09/10/20 03:58 97.4 F L 99 16 109/75 95 Weight Weight 212 lb 8 oz I&O: 09/09/20 09/10/20 09/11/20 06:59 06:59 06:59 Intake Total 860 1240 Balance 860 1240 Result Diagrams: 09/10/20 04:55 09/05/20 05:29 Additional Labs: Accuchecks 09/10/20 09/10/20 09/09/20 14:11 05:30 20:46 POC Glucose 162 H 218 H 181 H 09/09/20 17:31 POC Glucose 231 H Hospitalist ROS - Medication Medications: Active Medications Generic Name Dose Route Start Last Admin Trade Name Freq PRN Reason Stop Dose Admin Allopurinol 300 mg 09/04/20 09:00 09/10/20 14:31 Allopurinol 300 Mg Tab PO 300 mg DAILY [place]IGH Administration Carvedilol 25 mg 09/03/20 21:00 09/10/20 14:33 Carvedilol 25 Mg Tab PO 25 mg 1200,2100 [place]IGH Administration Dexamethasone 4 mg 09/10/20 12:00 09/10/20 13:03 Dexamethasone 4 Mg/Ml Vial SLOW IVP 4 mg Q6HR [place] Administration Insulin Human Lispro 0 units 09/08/20 21:16 09/09/20 17:34 Humalog 300 Units/3 Ml Vial SC 3 unit .MILD SLIDING SCALE PRN Administration Mild Correctional Scale Isosorbide Mononitrate 120 mg 09/04/20 09:00 09/10/20 14:31 Isosorbide Mononitrate Er 60 Mg Tab PO 120 mg DAILY [place] Administration Pantoprazole Sodium 40 mg 09/03/20 21:00 09/10/20 14:32 Pantoprazole 40 Mg Vial IVP 40 mg Q12HR [place] Administration Rosuvastatin Calcium 40 mg 09/04/20 09:00 09/10/20 14:30 Rosuvastatin 20 Mg Tab PO 40 mg DAILY [place] Administration Sacubitril/Valsartan 2 tab 09/07/20 21:00 09/10/20 14:32 Sacubitril 49 Mg/Valsartan 51 Mg Tablet PO 2 tab BID [place] Administration Sodium Chloride 10 ml 09/03/20 21:00 09/09/20 20:43 Flush - Normal Saline 10 Ml Syringe IVF 10 ml Q12HR [place] Administration Sodium Chloride 10 ml 09/03/20 18:45 09/10/20 14:34 Flush - Normal Saline 10 Ml Syringe IVF 10 ml PRN PRN Administration Saline Flush Hospitalist Exam Vitals: Vital Signs (12 hours) Temp Pulse Resp BP Pulse Ox 09/10/20 03:58 97.4 F L 99 16 109/75 95 Weight Weight 212 lb 8 oz General Appearance: NAD Eye: PERRL ENT: normocephalic atraumatic Neck: supple Heart: RRR Respiratory: normal chest expansion Neurological: no new deficit Psychiatric: oriented to person Hosp A/P - Plan ntracranial mass Code(s): R90.0 - INTCRN SPACE-OCCUPYING LESION FOUND ON DX IMAGING OF CNSL Status: Acute (2) Left arm weakness Code(s): R29.898 - OTH SYMPTOMS AND SIGNS INVOLVING THE MUSCULOSKELETAL SYSTEM Status: Acute (3) Unsteady gait Code(s): R26.81 - UNSTEADINESS ON FEET Status: Acute (4) Afib holding eliquis (5) CAD (coronary artery disease) Code(s): I25.10 - ATHSCL HEART DISEASE OF [place] CORONARY ARTERY W/O ANG PCTRS Status: Chronic Qualifiers: Coronary Disease-Associated Artery/Lesion type: habematolel artery [place] vs. transplanted heart: habemat[place]l heart Associated angina: without angina Qualified Code(s): I25.10 - Atherosclerotic heart disease of [place] coronary artery without angina pectoris (6) Pacemaker Code(s): Z95.0 - PRESENCE OF CARDIAC PACEMAKER Status: Chronic (7) HTN (hypertension) Code(s): I10 - ESSENTIAL (PRIMARY) HYPERTENSION Status: Chronic Qualifiers: Hypertension type: essential hypertension Qualified Code(s): I10 - Essential (primary) hypertension - Plan MRI of the brain cannot be performed due to incompatible pacemaker. The differentials for his right frontal lobe mass intraparenchymal hemorrhage versus abscess versus primary [employer]AT[employer]IMAL CARETAKER lesion versus metastatic lesions like melanoma -No aspirin or Eliquis -Decadron 10 mg IV every 6 hours, Protonix daily -Neurosurgery is following with us pending MRI scan -Neurology have no further recommendations patient has no episodes of seizure. Will follow closely. Abscess may not be likely as he has no white count fever and mentation welsh he seems to be at baseline. Also consulted oncology for their input. -asymptomatic from the COVID-. Hyperlipidemia on Lipitor MRI cannot be done due to pacemaker. Plan for stereotactic biopsy on Risks and benefits of the craniotomy has been discussed by the neurosurgery Radiation oncology to visit him today. Stereotactic biopsy on Sunday -Follow-up with radiation oncologist as an outpatient -Aspirin and Eliquis on hold. Status post stereotactic biopsy of the right frontal lesion Pending going to the ICU. Talk to the . Communicated with radiation oncologist Dr. Vernon Rob who will follow him as an outpatient for possible radiation therapy. He is recommended Decadron dose to be reduced. I also communicated with Willy Marroquin and plan for possible discharge tomorrow, if he continued to show clinical stability.
[2020-09-10] MEDS: CEFAZOLIN 2 GM in Premix Bag 1 BAG IVPB SCH (16:34)
[2020-09-10] MEDS: HumaLOG 300 UNITS/3 ML VIAL SC PRN (17:06)
[2020-09-11] MEDS: CEFAZOLIN 2 GM in Premix Bag 1 BAG IVPB SCH (00:37)
[2020-09-11] MEDS: Dexamethasone 4 mg/ml Vial SLOW IVP SCH ×3 (00:37→12:11)
[2020-09-11] MEDS ORDERED: Dexamethasone 4 mg/ml Vial ONE (07:20)
[2020-09-11 07:21] VITALS: TEMP 99.6
[2020-09-11] MEDS: Allopurinol 300 MG TAB PO SCH (10:34)
[2020-09-11] MEDS: Rosuvastatin 20 MG TAB PO SCH (10:35)
[2020-09-11] MEDS: Pantoprazole 40 MG VIAL IVP SCH (10:35)
[2020-09-11] MEDS: Sacubitril 49 MG/Valsartan 51 MG TABLET PO SCH (10:35)
[2020-09-11] MEDS: HumaLOG 300 UNITS/3 ML VIAL SC PRN (10:37)
[2020-09-11] MEDS ORDERED: levETIRAcetam in NS 1,000 MG in Premix Bag 1 BAG IVPB SCH (10:45)
--- NOTE | 2020-09-11 11:46 | PRG ---
DATE OF SERVICE: 09/11/2020 SUBJECTIVE: Galdino Ramesh is postoperative day #1 following right-sided perirolandic lesion biopsy with stereotactic needle performance yesterday. He is doing very well. He has mild left-sided arm weakness, but he is able to lift his arm antigravity. He is in good spirits and is otherwise neurologically intact. He does state that he had a period of "shaking of his left arm "earlier this week and as such, we will initiate the patient on levetiracetam over the course of the next week and Decadron just for perioperative protection. He will need followup with Oncology, and the patient, again, would like to go home today. I would be fine as long as he is walking, tolerating orals, and voiding on his own. Job ID: [id number]
[2020-09-11] MEDS ORDERED: levETIRAcetam 500 MG TAB PO SCH (12:00)
[2020-09-11] MEDS: Carvedilol 25 MG TAB PO SCH (12:11)
[2020-09-11 12:22] VITALS: BP 128/84
--- NOTE | 2020-09-11 18:03 | PDOC.DS.DS ---
Provider Date of Admission: 09/04/20 19:51 Date of Discharge: 09/11/20 Admitting Provider: Willy Frank MD Consultations: Neurology, Radiation Oncology, Neurosurgery Primary Care Physician: Dr. Rich Shearer Course Hospital Course: Patient is a 80-year-old male with hypertension, coronary artery disease, hypertension and cardiomyopathy presented to the emergency room on 09/04 with left-sided weakness of 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 CT of the chest, abdomen and pelvis was negative for primary or metastatic disease. Patient was evaluated by neurosurgery as well as neurology. Eliquis and aspirin were held. He underwent stereotactic biopsy of the right frontal lesion on 09/10. He has been cleared by neurosurgery for discharge. Eliquis and aspirin are currently on hold. He was placed on Keppra along with steroids for vasogenic edema as well as seizure prophylaxis. The patient will contact neurosurgery on 09/13 for follow-up appointment as well as instructions on when to resume antiplatelet/anticoagulant. Plan of care was discussed with the patient and the family. During this hospital stay patient was also evaluated by radiation oncology. 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 Heart) Resuscitation Status: 09/03/20 16:51 Resuscitation Status Routine Resuscitation Status: FULL: Full Resuscitation Lab Results: 09/10/20 04:55 09/05/20 05:29 Abnormal Lab Results - Last 48 hrs 09/10/20 04:55: APTT 22.4 L Vitals: Vital Signs (12 hours) Temp Pulse Pulse BP BP Pulse Ox 09/11/20 11:25 84 78 128/84 120/86 09/11/20 08:00 93 L 09/11/20 07:20 99.6 F Weight Weight 212 lb 8 oz Most Recent Monitor Data Heart Rate from ECG 88 NIBP 100/77 NIBP BP-Mean 84 Respiration from ECG 20 SpO2 94 Physical Exam: The patient was seen and examined on the day of discharge. Plan Prescriptions: Dexamethasone 6 mg PO ASDIR #7 tablet levETIRAcetam [Keppra] 500 mg PO BID #60 tab Pantoprazole [Protonix] 40 mg PO DAILY #30 tab Home Medications: Medication Instructions Recorded Confirmed Type Allopurinol [Zyloprim] 300 mg PO DAILY 09/19/15 09/04/20 History Nitroglycerin [Nitrostat] 0.4 mg SL Q5MIN PRN 09/19/15 09/04/20 History [place]-3/DHA/EPA/Fish Oil [[place] 3 1 each PO DAILY 09/19/15 09/04/20 History 500 Softgel] Rosuvastatin Calcium [Crestor] 40 mg PO DAILY 09/19/15 09/04/20 History Carvedilol [Coreg] 25 mg PO BID #0 09/20/15 09/04/20 Rx Isosorbide Mononitrate [Imdur ER] 120 mg PO DAILY #0 09/20/15 09/04/20 Rx Sacubitril/Valsartan [Entresto 97 1 tab PO BID 09/07/20 09/07/20 History mg-103 mg Tablet] Dexamethasone 6 mg PO ASDIR #7 tablet 09/11/20 Rx Pantoprazole [Protonix] 40 mg PO DAILY #30 tab 09/11/20 Rx levETIRAcetam [Keppra] 500 mg PO BID #60 tab 09/11/20 Rx Allergies: No Known Drug Allergies Allergy (Verified 01/21/19 02:43) Discharge Instructions:: Your prescriptions were sent to [facility] in [place]. You have been prescribed a short course of steroids and an anti-seizure medication. Take over the counter Tylenol as needed for pain or headaches. No lifting more than 10 pounds. Follow up will be arrange with Oncology once your biopsy pathology has returned. Keep your scalp wound as dry as possible. Do not scrub or wash the wound. Do not apply any creams or ointments. Activity:: Activity as Tolerated Nourishment:: No Restrictions Therapies:: Not Applicable Equipment/Supplies:: Not Applicable IV Therapy:: Not Applicable Referrals: Chuy Shearer Jr, MD [MD Not on Staff] - Yasmin Ibanez MD [Active] - 14 Days () Disposition: HOME Quality CORE MEASURES:: N/A
[2020-09-11] MEDS ORDERED: levETIRAcetam in NS 500 MG in Premix Bag 1 BAG IVPB SCH (21:00)
--- NOTE | 2020-09-15 12:35 | PQF ---
CLINICAL DOCUMENTATION CLARIFICATION FORM: Dear : Yasmin Ibanez MD Date / Time: 09/15/2020 Please exercise your independent, professional judgment in responding to the clarification form. 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 Thank You. To be completed by CDI/Coding staff for physician review: Present Clinical Indicators - Signs / Symptoms / Labs Results and Location in Medical Record [x] Brain, right frontal lesion: high grade glioma(glioblastoma) Path on 09/10 [x] Right intercranial mass of unknown etiology at this time- this could be a primary brain tumor such as gliobalstoma or alternatively could represent metastatic disease Consult on 09/07 [x] Again malignancy remains the primary concern Consult on 09/07 [ ] Present Risk Factors Results and Location in Medical Record [x] Frontal lesion Op note on 09/10 [x] Brain mass Consult on 09/07 [ ] [ ] Present Treatments Results and Location in Medical Record [x] Sterotactic-assisted needle biopsy of right frontal lesion Op note on 09/10 [x] Onology/radiology consult Consult on 09/07 [ ] [ ] CDS/Senior Data Developer Signature: AAS Phone #: Date/Time: 09/15/2020 This is a permanent part of the Medical Record [facility]
== END 2020-09-11 13:25 | disposition home or self-care (01) | DRG 25 ==
LOC: ERS 13:33 → 2SE 16:39 → OBSVTOIN 09-04 19:51 → CCU 09-10 09:46 → PACU-TCU 09-10 16:19
PROVIDERS: ADMIT Internal Medicine; ATTEND Internal Medicine
PROC: 00B03ZX Excision of Brain, Percutaneous Approach, Diagnostic (ICD-10-PCS; principal; 2020-09-10)
DX: D49.6 Neoplasm of unspecified behavior of brain (principal); G93.6 Cerebral edema; U07.1 COVID-19; I42.9 Cardiomyopathy, unspecified; I48.20 Chronic atrial fibrillation, unspecified; G81.94 Hemiplegia, unspecified affecting left nondominant side; I50.22 Chronic systolic (congestive) heart failure; I13.0 Hypertensive heart and chronic kidney disease with heart failure and stage 1 through stage 4 chronic kidney disease, or unspecified chronic kidney disease; I25.10 Atherosclerotic heart disease of native coronary artery without angina pectoris; E78.5 Hyperlipidemia, unspecified; I48.91 Unspecified atrial fibrillation; Z79.899 Other long term (current) drug therapy; Z95.810 Presence of automatic (implantable) cardiac defibrillator; Z98.49 Cataract extraction status, unspecified eye; Z79.01 Long term (current) use of anticoagulants; Z79.82 Long term (current) use of aspirin; Z98.890 Other specified postprocedural states; Z82.49 Family history of ischemic heart disease and other diseases of the circulatory system; Z87.891 Personal history of nicotine dependence; R26.81 Unsteadiness on feet; E78.00 Pure hypercholesterolemia, unspecified; Z85.828 Personal history of other malignant neoplasm of skin; N18.2 Chronic kidney disease, stage 2 (mild)
CPT/HCPCS: 36415; 36416; 70450; 70470; 71045; 71260; 74177; 80048; 80053; 81287; 81479; 82550; 82728; 84484; 85025; 85027; 85379; 85610; 85730; 86140; 87635; 88307; 88331; 88334; 88341; 88342; 93005; 96374; 96375; 96376; C1713; C9113; G0378; J0690; J1100; J1815; J2001; J2370; J2405; J2704; J2765; J3010; J3490; Q9967; U0003; U0005

== ENCOUNTER 2020-10-18 19:57 | Inpatient (IN) | payer MEDICARE ==
[2020-10-18 20:40] LABS: #Lymphocytes 2.2 thou/uL (1.20-3.40); #Monocytes 0.5 thou/uL (0.11-0.59); #Neutrophils 6.9 thou/uL (1.40-6.50); %Eosinophils 0.2 % (0.0-10.0); %Monocytes 4.7 % (0.0-10.0); Hemoglobin 14.2 g/dL (14.0-18.0); Mean Corpuscular HGB CONC 32.9 g/dL (32.0-36.0); Mean Corpuscular Volume 94.4 fL (78.0-98.0); Mean Platelet Volume 9.6 fL (7.4-10.4); Platelet Count 47 thou/uL (130-400); RBC Distribution Width 14.1 % (11.5-14.5); Red Blood Cell (RBC) Count 4.58 mill/uL (4.70-6.10); White Blood Cell (WBC) Count 9.6 thou/uL (4.8-10.8)
[2020-10-18 21:00] LABS: ALT (SGPT) 63 U/L (8-55); AST (SGOT) 35 U/L (5-34); Albumin 3.4 g/dL (3.4-4.8); Alkaline Phosphatase 47 U/L (40-110); Anion Gap 13 mmol/L (10-20); BUN (Urea Nitrogen) 23 mg/dL (8.4-25.7); Calc. Creatinine Clearance 0 mL/min (70-130); Calcium 8.2 mg/dL (7.8-10.44); Carbon Dioxide 26 mmol/L (23-31); Chloride 104 mmol/L (98-107); Glucose 82 mg/dL (83-110); Potassium 4.2 mmol/L (3.5-5.1); Protein, Total 5.4 g/dL (5.8-8.1); Sodium 139 mmol/L (136-145)
[2020-10-18 21:22] LABS: CKMB 5.7 ng/mL (0-6.6)
[2020-10-18] MEDS ORDERED: Aspirin 325 MG TAB ONE (22:41)
[2020-10-18] MEDS ORDERED: Acetaminophen 650 MG Suppository PR PRN (22:42)
[2020-10-18] MEDS ORDERED: Acetaminophen 325 MG TAB PO PRN (22:42)
[2020-10-18 23:01] LABS: Troponin I 0.064 ng/mL (< 0.028)
[2020-10-19 00:29] VITALS: BMI 25.6
[2020-10-19] MEDS ORDERED: HumaLOG 300 UNITS/3 ML VIAL SC PRN ×3 (03:10→08:56)
[2020-10-19 03:17] LABS: #Lymphocytes 1.8 thou/uL (1.20-3.40); #Monocytes 0.4 thou/uL (0.11-0.59); #Neutrophils 5.1 thou/uL (1.40-6.50); %Eosinophils 0.2 % (0.0-10.0); %Lymphocytes 24.4 % (21.0-51.0); %Monocytes 5.8 % (0.0-10.0); %Neutrophils 69.6 % (42.0-75.0); Hemoglobin 13.2 g/dL (14.0-18.0); Mean Corpuscular HGB CONC 32.6 g/dL (32.0-36.0); Mean Corpuscular Hemoglobin 30.7 pg (27.0-31.0); Mean Corpuscular Volume 94.4 fL (78.0-98.0); Mean Platelet Volume 9.1 fL (7.4-10.4); Platelet Count 39 thou/uL (130-400); RBC Distribution Width 14.2 % (11.5-14.5); Red Blood Cell (RBC) Count 4.31 mill/uL (4.70-6.10); White Blood Cell (WBC) Count 7.3 thou/uL (4.8-10.8)
[2020-10-19 03:32] LABS: Troponin I 0.064 ng/mL (< 0.028)
[2020-10-19 03:36] LABS: ALT (SGPT) 63 U/L (8-55); AST (SGOT) 35 U/L (5-34); Alkaline Phosphatase 48 U/L (40-110); Anion Gap 12 mmol/L (10-20); BUN (Urea Nitrogen) 22 mg/dL (8.4-25.7); Bilirubin, Total 0.8 mg/dL (0.2-1.2); Calc. Creatinine Clearance 78 mL/min (70-130); Carbon Dioxide 26 mmol/L (23-31); Chloride 102 mmol/L (98-107); Globulin 1.9 g/dL (2.4-3.5); Glucose 334 mg/dL (83-110); Lipase 38 U/L (8-78); Potassium 4.4 mmol/L (3.5-5.1); Protein, Total 4.9 g/dL (5.8-8.1); Sodium 136 mmol/L (136-145)
[2020-10-19 06:59] LABS: SARS-CoV-2 PCR by NAA Not Detected (NotDetected)
[2020-10-19] MEDS ORDERED: Dextrose 50% Abboject 50 ML SYRINGE SLOW IVP PRN (08:56)
[2020-10-19] MEDS ORDERED: Dextrose 5% in Water 1,000 ML IV PRN (08:56)
[2020-10-19 09:11] LABS: Hemoglobin A1c 10.4 % (4.0-6.0)
[2020-10-19] MEDS: metFORMIN 500 MG TAB PO SCH (17:54)
[2020-10-20] MEDS: metFORMIN 500 MG TAB PO SCH (09:39)
[2020-10-20 11:52] VITALS: BP 108/64; TEMP 98.8
== END 2020-10-20 15:57 | disposition home or self-care (01) | DRG 638 ==
LOC: ERS 19:57 → 2NO 21:59 → OBSVTOIN 10-19 16:08
PROVIDERS: ADMIT Internal Medicine; ATTEND Internal Medicine
DX: E11.649 Type 2 diabetes mellitus with hypoglycemia without coma (principal); C71.9 Malignant neoplasm of brain, unspecified; I47.2 Ventricular tachycardia; I48.92 Unspecified atrial flutter; I25.10 Atherosclerotic heart disease of native coronary artery without angina pectoris; I11.0 Hypertensive heart disease with heart failure; I50.9 Heart failure, unspecified; I48.0 Paroxysmal atrial fibrillation; E78.5 Hyperlipidemia, unspecified; M10.9 Gout, unspecified; I25.5 Ischemic cardiomyopathy; D69.6 Thrombocytopenia, unspecified; E11.65 Type 2 diabetes mellitus with hyperglycemia; T38.0X5A Adverse effect of glucocorticoids and synthetic analogues, initial encounter; Z95.810 Presence of automatic (implantable) cardiac defibrillator; Z79.899 Other long term (current) drug therapy; Z79.4 Long term (current) use of insulin
CPT/HCPCS: 36415; 36416; 71045; 77336; 77386; 80053; 82553; 83036; 83690; 83735; 84484; 85025; 87635; 93005; G0378; J1815; U0003; U0005

== ENCOUNTER 2020-11-02 22:07 | Inpatient (IN) | payer MEDICARE ==
[2020-11-02 22:42] LABS: #Lymphocytes 2.9 thou/uL (1.20-3.40); #Monocytes 0.6 thou/uL (0.11-0.59); %Basophils 0.2 % (0.0-1.0); %Eosinophils 0.4 % (0.0-10.0); %Lymphocytes 38.6 % (21.0-51.0); %Monocytes 7.8 % (0.0-10.0); %Neutrophils 52.9 % (42.0-75.0); Hemoglobin 11.2 g/dL (14.0-18.0); Mean Corpuscular HGB CONC 31.4 g/dL (32.0-36.0); Mean Corpuscular Hemoglobin 29.6 pg (27.0-31.0); Mean Platelet Volume 7.9 fL (7.4-10.4); Platelet Count 136 thou/uL (130-400); RBC Distribution Width 15.3 % (11.5-14.5); Red Blood Cell (RBC) Count 3.78 mill/uL (4.70-6.10); White Blood Cell (WBC) Count 7.5 thou/uL (4.8-10.8)
[2020-11-02 23:02] LABS: ALT (SGPT) 46 U/L (8-55); AST (SGOT) 42 U/L (5-34); Albumin 3.2 g/dL (3.4-4.8); Alkaline Phosphatase 73 U/L (40-110); Anion Gap 15 mmol/L (10-20); BUN (Urea Nitrogen) 18 mg/dL (8.4-25.7); Bilirubin, Total 1.1 mg/dL (0.2-1.2); CK (CPK) 34 U/L (30-200); Calc. Creatinine Clearance 0 mL/min (70-130); Calcium 7.9 mg/dL (7.8-10.44); Carbon Dioxide 23 mmol/L (23-31); Chloride 105 mmol/L (98-107); Globulin 2.1 g/dL (2.4-3.5); Glucose 155 mg/dL (83-110); Lipase 22 U/L (8-78); Magnesium 1.7 mg/dL (1.6-2.6); Potassium 3.6 mmol/L (3.5-5.1); Protein, Total 5.3 g/dL (5.8-8.1); Sodium 139 mmol/L (136-145)
[2020-11-02] MEDS ORDERED: Magnesium 2 GM/50 ML BAG (IN WATER) ONE (23:10)
[2020-11-02 23:24] LABS: CKMB 1.6 ng/mL (0-6.6)
[2020-11-02] MEDS ORDERED: Amiodarone 150 MG, Admixture Fee 1 EACH in Dextrose 5% in Water 100 ML IVPB SCH (23:30)
[2020-11-02] MEDS ORDERED: Amiodarone 450 MG, Admixture Fee 1 EACH in Dextrose 5% in Water 250 ML IVPB SCH (23:30)
[2020-11-03] MEDS ORDERED: Cefepime 2 GM VIAL ONE (00:06)
[2020-11-03] MEDS ORDERED: VANCOMYCIN 1.25 GM/250 ML BAG 1.25 GM in Premix Bag 1 BAG IVPB SCH (00:30)
[2020-11-03] MEDS ORDERED: Acetaminophen 650 MG Suppository PR PRN (03:33)
[2020-11-03] MEDS ORDERED: Acetaminophen 325 MG TAB PO PRN (03:33)
[2020-11-03 04:29] LABS: Anion Gap 13 mmol/L (10-20); Carbon Dioxide 23 mmol/L (23-31); Chloride 107 mmol/L (98-107); Potassium 3.4 mmol/L (3.5-5.1); Sodium 140 mmol/L (136-145)
[2020-11-03] MEDS ORDERED: HumaLOG 300 UNITS/3 ML VIAL SC PRN ×2 (04:41)
[2020-11-03] MEDS ORDERED: Dextrose 50% Abboject 50 ML SYRINGE SLOW IVP PRN (04:41)
[2020-11-03] MEDS ORDERED: Dextrose 5% in Water 1,000 ML IV PRN (04:41)
[2020-11-03 04:57] LABS: CKMB 2.5 ng/mL (0-6.6)
[2020-11-03] MEDS ORDERED: Potassium Chloride 20 MEQ in Premix Bag 1 BAG IVPB SCH (05:00)
[2020-11-03 05:12] LABS: SARS-CoV-2 NAA Rapid Test Not Detected (NotDetected)
[2020-11-03] MEDS ORDERED: Potassium Chloride 20 MEQ/100 ML PREMIX BAG ONE (07:30)
[2020-11-03] MEDS ORDERED: Enoxaparin Sodium 100 MG/ML SYRINGE ONE (09:54)
[2020-11-03] MEDS: Enoxaparin Sodium 100 MG/ML SYRINGE SC SCH ×2 (10:39→21:20)
[2020-11-03 10:49] LABS: Bacteria/HPF None Seen HPF (None Seen); Bilirubin Negative (Negative); Blood, Urine 1+ (Negative); Clarity Clear (Clear); Glucose, Urine (Dipstick) Normal (Negative); Ketone, Urine Negative (Negative); Leukocyte Negative Leu/uL (Negative); Nitrite Negative (Negative); Protein, Urine (Dipstick) 70 mg/dL (Neg-Trace); Squamous Epithelial None Seen HPF (0-3); Urobilinogen Normal mg/dL (Less than 2); WBC/HPF 0-3 HPF (0-3); pH, Urine 5.5 (5.0-9.0)
[2020-11-03 10:52] LABS: Specific Gravity, Urine 1.057 (1.002-1.036)
[2020-11-03] MEDS ORDERED: Iopamidol-370 76% 500 ML 1 ML ONE (13:52)
[2020-11-03 20:57] VITALS: BMI 26.4
[2020-11-03] MEDS ORDERED: Non-Formulary Item 1 EACH (Rosuvastatin Calcium [Crestor] 40 MG Tablet) PO SCH (21:00)
[2020-11-03] MEDS ORDERED: Sacubitril 49 MG/Valsartan 51 MG TABLET PO SCH (21:00)
[2020-11-03] MEDS ORDERED: Carvedilol 25 MG TAB PO SCH ×2 (21:00)
[2020-11-03] MEDS ORDERED: Non-Formulary Item 1 EACH (Sacubitril/Valsartan [Entresto 97 Mg-103 Mg Tablet] 1 EACH Tab PO SCH (21:00)
[2020-11-03] MEDS: Rosuvastatin 20 MG TAB PO SCH (21:19)
[2020-11-03] MEDS: Cefepime 1 GM in Sodium Chloride 0.9% 100 ML IVPB SCH (21:20)
[2020-11-04 04:24] LABS: #Lymphocytes 2.2 thou/uL (1.20-3.40); #Monocytes 0.4 thou/uL (0.11-0.59); #Neutrophils 3.1 thou/uL (1.40-6.50); %Basophils 0.2 % (0.0-1.0); %Eosinophils 0.4 % (0.0-10.0); %Lymphocytes 38.3 % (21.0-51.0); %Monocytes 6.9 % (0.0-10.0); %Neutrophils 54.2 % (42.0-75.0); Hemoglobin 10.1 g/dL (14.0-18.0); Mean Corpuscular HGB CONC 33.5 g/dL (32.0-36.0); Mean Corpuscular Hemoglobin 31.5 pg (27.0-31.0); Mean Corpuscular Volume 93.9 fL (78.0-98.0); Mean Platelet Volume 7.8 fL (7.4-10.4); Platelet Count 133 thou/uL (130-400); RBC Distribution Width 15.3 % (11.5-14.5); Red Blood Cell (RBC) Count 3.19 mill/uL (4.70-6.10); White Blood Cell (WBC) Count 5.6 thou/uL (4.8-10.8)
[2020-11-04] MEDS ORDERED: Sodium Chloride 0.9% 500 ML IV SCH (04:30)
[2020-11-04 04:44] LABS: Anion Gap 12 mmol/L (10-20); BUN (Urea Nitrogen) 15 mg/dL (8.4-25.7); Calc. Creatinine Clearance 104 mL/min (70-130); Calcium 7.7 mg/dL (7.8-10.44); Carbon Dioxide 20 mmol/L (23-31); Cardiac Risk 3.9 (Less than 4.5); Chloride 106 mmol/L (98-107); Cholesterol 118 mg/dl (< 200 Desired); Glucose 186 mg/dL (83-110); HDL Cholesterol 30 mg/dL (>60 Neg Risk); LDL Cholesterol, Calculated 66 mg/dL; Potassium 3.4 mmol/L (3.5-5.1); Sodium 135 mmol/L (136-145); Triglycerides 109 mg/dL (Less than 150)
[2020-11-04] MEDS ORDERED: Sodium Chloride 0.9% 500 ML IVPB SCH (09:00)
[2020-11-04] MEDS: Dexamethasone 4 MG TAB PO SCH ×2 (09:06→21:08)
[2020-11-04] MEDS: Enoxaparin Sodium 100 MG/ML SYRINGE SC SCH (09:06)
[2020-11-04] MEDS: Cefepime 1 GM in Sodium Chloride 0.9% 100 ML IVPB SCH ×2 (09:06→21:05)
[2020-11-04] MEDS: Allopurinol 300 MG TAB PO SCH (09:06)
[2020-11-04] MEDS: Sodium Chloride 0.9% 1,000 ML IV SCH ×2 (09:50→19:39)
[2020-11-04] MEDS ORDERED: Nitroglycerin 0.4 MG TAB (25 Tab Bottle) SL PRN (12:24)
[2020-11-04] MEDS: Apixaban 5 MG TAB PO SCH (21:05)
[2020-11-04] MEDS: Rosuvastatin 20 MG TAB PO SCH (21:07)
[2020-11-05 04:39] LABS: ALT (SGPT) 220 U/L (8-55); AST (SGOT) 237 U/L (5-34); Albumin 2.5 g/dL (3.4-4.8); Alkaline Phosphatase 127 U/L (40-110); Anion Gap 12 mmol/L (10-20); BUN (Urea Nitrogen) 12 mg/dL (8.4-25.7); Bilirubin, Total 0.7 mg/dL (0.2-1.2); Calc. Creatinine Clearance 102 mL/min (70-130); Calcium 7.5 mg/dL (7.8-10.44); Carbon Dioxide 20 mmol/L (23-31); Chloride 109 mmol/L (98-107); Globulin 2.7 g/dL (2.4-3.5); Glucose 131 mg/dL (83-110); Potassium 3.4 mmol/L (3.5-5.1); Protein, Total 5.2 g/dL (5.8-8.1); Sodium 138 mmol/L (136-145)
[2020-11-05 04:49] LABS: #Lymphocytes 2.1 thou/uL (1.20-3.40); #Monocytes 0.4 thou/uL (0.11-0.59); #Neutrophils 2.6 thou/uL (1.40-6.50); %Basophils 0.3 % (0.0-1.0); %Eosinophils 0.5 % (0.0-10.0); %Lymphocytes 40.5 % (21.0-51.0); %Monocytes 8.2 % (0.0-10.0); %Neutrophils 50.5 % (42.0-75.0); Hemoglobin 9.8 g/dL (14.0-18.0); Mean Corpuscular HGB CONC 33.1 g/dL (32.0-36.0); Mean Corpuscular Hemoglobin 31.1 pg (27.0-31.0); Mean Corpuscular Volume 93.8 fL (78.0-98.0); Mean Platelet Volume 7.8 fL (7.4-10.4); Platelet Count 154 thou/uL (130-400); RBC Distribution Width 15.1 % (11.5-14.5); Red Blood Cell (RBC) Count 3.15 mill/uL (4.70-6.10); White Blood Cell (WBC) Count 5.2 thou/uL (4.8-10.8)
[2020-11-05] MEDS: Sodium Chloride 0.9% 1,000 ML IV SCH (05:28)
[2020-11-05] MEDS ORDERED: Aspirin 81 mg Enteric Coated Tablet PO SCH (09:00)
[2020-11-05] MEDS: Cefepime 1 GM in Sodium Chloride 0.9% 100 ML IVPB SCH (09:21)
[2020-11-05] MEDS: Apixaban 5 MG TAB PO SCH ×2 (09:21→18:02)
[2020-11-05] MEDS: Allopurinol 300 MG TAB PO SCH (09:21)
[2020-11-05] MEDS: Dexamethasone 4 MG TAB PO SCH (09:22)
[2020-11-05 15:33] VITALS: TEMP 98.6
[2020-11-05 16:36] VITALS: BP 125/79
[2020-11-12] MEDS ORDERED: Apixaban 5 MG TAB PO SCH (09:00)
== END 2020-11-05 18:30 | disposition home or self-care (01) | DRG 175 ==
LOC: ERS 22:07 → ERHOLD 11-03 01:37 → OBSVTOIN 11-03 09:54 → 2NO 11-03 20:36
PROVIDERS: ADMIT Internal Medicine; ATTEND Internal Medicine
DX: I26.99 Other pulmonary embolism without acute cor pulmonale (principal); I21.A1 Myocardial infarction type 2; C71.9 Malignant neoplasm of brain, unspecified; I48.20 Chronic atrial fibrillation, unspecified; I25.10 Atherosclerotic heart disease of native coronary artery without angina pectoris; I10 Essential (primary) hypertension; E78.5 Hyperlipidemia, unspecified; M10.9 Gout, unspecified; E09.9 Drug or chemical induced diabetes mellitus without complications; T38.0X5A Adverse effect of glucocorticoids and synthetic analogues, initial encounter; I25.5 Ischemic cardiomyopathy; E78.00 Pure hypercholesterolemia, unspecified; Z20.822 Contact with and (suspected) exposure to COVID-19; Z95.810 Presence of automatic (implantable) cardiac defibrillator; Z79.01 Long term (current) use of anticoagulants; Z79.82 Long term (current) use of aspirin; Z79.4 Long term (current) use of insulin; Z79.899 Other long term (current) drug therapy; Z85.828 Personal history of other malignant neoplasm of skin; Z87.891 Personal history of nicotine dependence
CPT/HCPCS: 0240U; 36415; 36416; 70450; 71045; 71275; 80048; 80051; 80053; 80061; 81003; 81015; 82550; 82553; 83605; 83690; 83735; 83880; 84145; 84484; 85025; 85379; 87040; 93005; 93306; 96365; 96367; 96375; G0378; J0282; J0692; J1650; J1956; J3370; J3475; J3480; J3490; J7030; J7070; Q9967

== ENCOUNTER 2020-12-07 15:39 | Outpatient (CLI) | payer MEDICARE ==
[2020-12-07 14:53] LABS: INR-International Normal Ratio 1.1
[2020-12-07 15:12] LABS: Anion Gap 17 mmol/L (10-20); BUN (Urea Nitrogen) 10 mg/dL (8.4-25.7); Calc. Creatinine Clearance 0 mL/min (70-130); Calcium 8.9 mg/dL (7.8-10.44); Carbon Dioxide 23 mmol/L (23-31); Chloride 104 mmol/L (98-107); Glucose 106 mg/dL (83-110); Sodium 140 mmol/L (136-145)
[2020-12-07 15:42] LABS: #Monocytes 0.4 10x3/uL (0.0-1.1); #Neutrophils 2.6 10x3/uL (1.5-8.4); %Basophils 0.4 % (0.0-2.0); %Eosinophils 0.6 % (0.0-6.0); %Lymphocytes 41.2 % (18.0-47.0); %Monocytes 8.1 % (0.0-10.0); %Neutrophils 48.9 % (40.0-75.0); Hemoglobin 10.6 g/dL (13.5-17.5); Mean Corpuscular HGB CONC 30.3 g/dL (32.0-36.0); Mean Corpuscular Hemoglobin 29.6 pg (27.0-33.0); Mean Corpuscular Volume 97.8 fl (81.2-95.1); Mean Platelet Volume 11.1 fl (7.4-10.4); Platelet Count 205 10x3/uL (150-450); RBC Distribution Width 18.2 % (11.5-14.5); Red Blood Cell (RBC) Count 3.58 10x6/uL (4.32-5.72); White Blood Cell (WBC) Count 5.3 10x3/uL (3.5-10.5)
[2020-12-08 04:50] LABS: SARS-CoV-2 PCR by NAA Not Detected (NotDetected)
== END 2020-12-07 15:40 | disposition home or self-care (01) ==
LOC: LABBT 15:39
PROVIDERS: ATTEND Internal Medicine Cardiovascular Disease
DX: Z01.818 Encounter for other preprocedural examination (principal); I48.91 Unspecified atrial fibrillation; Z20.822 Contact with and (suspected) exposure to COVID-19
CPT/HCPCS: 80048; 85025; 85610; 85730; 93005; U0003; U0005; 87635; 93010

== ENCOUNTER 2020-12-10 09:57 | Day surgery (SDC) | payer MEDICARE ==
[2020-12-09 13:26] VITALS: BMI 28.7
[2020-12-10] MEDS ORDERED: PHENYLEPHRINE-NS 100 MCG/ML 10 ML SYRINGE ONE (10:53)
[2020-12-10] MEDS ORDERED: Sodium Chloride 0.9% 20 ML ONE (10:53)
[2020-12-10] MEDS ORDERED: PROPOFOL 20 ML ONE (10:53)
== END 2020-12-10 13:12 | disposition home or self-care (01) ==
LOC: CCL 09:57
PROVIDERS: ATTEND Internal Medicine Cardiovascular Disease
PROC: 5A2204Z Restoration of Cardiac Rhythm, Single (ICD-10-PCS; principal; 2020-12-10)
DX: I48.0 Paroxysmal atrial fibrillation (principal); I25.5 Ischemic cardiomyopathy; I42.0 Dilated cardiomyopathy; I25.10 Atherosclerotic heart disease of native coronary artery without angina pectoris; E78.5 Hyperlipidemia, unspecified; I11.0 Hypertensive heart disease with heart failure; I50.9 Heart failure, unspecified; I25.2 Old myocardial infarction; E11.51 Type 2 diabetes mellitus with diabetic peripheral angiopathy without gangrene; I45.10 Unspecified right bundle-branch block; Z86.711 Personal history of pulmonary embolism; Z79.01 Long term (current) use of anticoagulants; Z79.82 Long term (current) use of aspirin; Z79.84 Long term (current) use of oral hypoglycemic drugs; Z79.899 Other long term (current) drug therapy; Z95.810 Presence of automatic (implantable) cardiac defibrillator
CPT/HCPCS: 92960; J2704

== ENCOUNTER 2021-01-14 19:34 | Inpatient (IN) | payer MEDICARE ==
[2021-01-14] MEDS ORDERED: Ondansetron PF 4 MG/2 ML Vial IVP PRN (21:41)
[2021-01-14] MEDS ORDERED: Zolpidem Tartrate 5 MG TAB PO PRN (21:41)
[2021-01-14] MEDS ORDERED: Dextrose 50% Abboject 50 ML SYRINGE SLOW IVP PRN (21:41)
[2021-01-14] MEDS ORDERED: HYDROcodone/Acetaminophen 7.5/325 mg Tablet PO PRN (21:41)
[2021-01-14] MEDS ORDERED: Acetaminophen 325 MG TAB PO PRN (21:41)
[2021-01-14] MEDS ORDERED: HYDROcodone/Acetaminophen 5/325 mg Tablet PO PRN (21:41)
[2021-01-14] MEDS ORDERED: Dextrose 5% in Water 1,000 ML IV PRN (21:41)
[2021-01-14] MEDS ORDERED: Bisacodyl 5 MG TAB PO PRN (21:41)
[2021-01-14] MEDS ORDERED: hydrALAZINE 20 MG/ML VIAL SLOW IVP PRN (21:47)
[2021-01-14] MEDS ORDERED: Heparin 10,000 UNITS/ 10 ML VIAL SLOW IVP SCH (22:00)
[2021-01-14] MEDS ORDERED: Heparin 25,000 units/D5W 500 ML IVPB SCH (22:00)
[2021-01-14 22:25] LABS: Platelet Count 157 thou/uL (130-400)
[2021-01-15 01:21] VITALS: BMI 25.7
[2021-01-15 03:00] LABS: SARS-CoV-2 NAA Rapid Test Not Detected (NotDetected)
[2021-01-15 05:02] LABS: #Lymphocytes 1.1 thou/uL (1.20-3.40); #Neutrophils 2.9 thou/uL (1.40-6.50); %Basophils 0.3 % (0.0-1.0); %Eosinophils 0.1 % (0.0-10.0); %Lymphocytes 27.3 % (21.0-51.0); %Monocytes 0.3 % (0.0-10.0); Hemoglobin 10.5 g/dL (14.0-18.0); Mean Corpuscular HGB CONC 30.5 g/dL (32.0-36.0); Mean Corpuscular Hemoglobin 29.9 pg (27.0-31.0); Mean Corpuscular Volume 98.2 fL (78.0-98.0); Platelet Count 156 thou/uL (130-400); RBC Distribution Width 16.3 % (11.5-14.5); Red Blood Cell (RBC) Count 3.52 mill/uL (4.70-6.10)
[2021-01-15 05:24] LABS: ALT (SGPT) 11 U/L (8-55); AST (SGOT) 21 U/L (5-34); Albumin 3.9 g/dL (3.4-4.8); Alkaline Phosphatase 45 U/L (40-110); Anion Gap 13 mmol/L (10-20); BUN (Urea Nitrogen) 10 mg/dL (8.4-25.7); Bilirubin, Total 0.5 mg/dL (0.2-1.2); Calc. Creatinine Clearance 97 mL/min (70-130); Calcium 9.2 mg/dL (7.8-10.44); Carbon Dioxide 24 mmol/L (23-31); Chloride 105 mmol/L (98-107); Globulin 2.4 g/dL (2.4-3.5); Glucose 153 mg/dL (83-110); Potassium 3.8 mmol/L (3.5-5.1); Protein, Total 6.3 g/dL (5.8-8.1); Sodium 138 mmol/L (136-145)
[2021-01-15] MEDS ORDERED: Dexamethasone 10 MG in Sodium Chloride 0.9% 50 ML IVPB SCH (09:00)
[2021-01-15] MEDS ORDERED: Apixaban 5 MG TAB PO SCH ×2 (09:00→12:00)
[2021-01-15] MEDS: Famotidine/PF 20 mg/2ml Vial SLOW IVP SCH ×2 (11:03→20:15)
[2021-01-15] MEDS: Lidocaine 5% Patch TD SCH (11:11)
[2021-01-15] MEDS ORDERED: Nitroglycerin 0.4 MG TAB (25 Tab Bottle) SL PRN (11:52)
[2021-01-15] MEDS: ONDANSETRON 8 MG PO PRN (15:45)
[2021-01-15] MEDS ORDERED: TEMOZOLOMIDE 100 MG CAPSULE PO SCH (15:45)
[2021-01-15] MEDS ORDERED: Dexamethasone 1 MG TAB PO SCH (17:00)
[2021-01-15] MEDS: Dexamethasone 4 MG TAB PO SCH (18:15)
[2021-01-15] MEDS: Apixaban 5 MG TAB PO SCH (20:13)
[2021-01-15] MEDS: Rosuvastatin 20 MG TAB PO SCH (20:13)
[2021-01-15] MEDS: Carvedilol 6.25 MG TAB PO SCH (20:13)
[2021-01-15] MEDS: Sacubitril 49 MG/Valsartan 51 MG TABLET PO SCH (20:18)
[2021-01-15] MEDS: Transdermal Patch Removal TOP SCH (20:19)
[2021-01-15] MEDS ORDERED: Ondansetron ODT 8 MG TAB PO SCH (22:00)
[2021-01-16] MEDS: Dexamethasone 4 MG TAB PO SCH ×5 (00:36→23:57)
[2021-01-16] MEDS: HumaLOG 300 UNITS/3 ML VIAL SC PRN ×3 (05:26→18:25)
[2021-01-16] MEDS: Aspirin 81 mg Enteric Coated Tablet PO SCH (08:43)
[2021-01-16] MEDS: Apixaban 5 MG TAB PO SCH ×2 (08:43→20:53)
[2021-01-16] MEDS: Sacubitril 49 MG/Valsartan 51 MG TABLET PO SCH ×3 (08:44→20:57)
[2021-01-16] MEDS: Carvedilol 6.25 MG TAB PO SCH ×2 (08:46→20:54)
[2021-01-16] MEDS: Allopurinol 300 MG TAB PO SCH (08:48)
[2021-01-16] MEDS: Famotidine/PF 20 mg/2ml Vial SLOW IVP SCH ×2 (08:48→20:53)
[2021-01-16] MEDS ORDERED: TEMOZOLOMIDE 100 MG PO SCH (09:00)
[2021-01-16] MEDS ORDERED: metFORMIN 500 MG TAB PO SCH (11:15)
[2021-01-16] MEDS: Lidocaine 5% Patch TD SCH (13:02)
[2021-01-16] MEDS: ONDANSETRON 8 MG PO PRN (14:56)
[2021-01-16] MEDS: TEMOZOLOMIDE 100 MG CAPSULE PO SCH (15:44)
[2021-01-16] MEDS: metFORMIN 500 MG TAB PO SCH (17:36)
[2021-01-16] MEDS: Rosuvastatin 20 MG TAB PO SCH (20:52)
[2021-01-16] MEDS: Transdermal Patch Removal TOP SCH (20:55)
[2021-01-16 22:27] LABS: Hemoglobin 10.2 g/dL (14.0-18.0); Platelet Count 190 thou/uL (130-400)
[2021-01-17] MEDS: Dexamethasone 4 MG TAB PO SCH ×3 (06:40→17:24)
[2021-01-17] MEDS: Sacubitril 49 MG/Valsartan 51 MG TABLET PO SCH ×2 (08:35→20:51)
[2021-01-17] MEDS: Carvedilol 6.25 MG TAB PO SCH ×2 (08:40→20:49)
[2021-01-17] MEDS: Apixaban 5 MG TAB PO SCH ×2 (08:40→20:48)
[2021-01-17] MEDS: Allopurinol 300 MG TAB PO SCH (08:40)
[2021-01-17] MEDS: metFORMIN 500 MG TAB PO SCH (08:40)
[2021-01-17] MEDS: Aspirin 81 mg Enteric Coated Tablet PO SCH (08:40)
[2021-01-17] MEDS: Famotidine/PF 20 mg/2ml Vial SLOW IVP SCH ×2 (08:41→20:50)
[2021-01-17] MEDS: Lidocaine 5% Patch TD SCH (08:42)
[2021-01-17] MEDS ORDERED: Iopamidol 370 76% 100 ML VIAL ONE (09:00)
[2021-01-17] MEDS ORDERED: Sulfameth/Trimethoprim DS 800-160mg TAB PO SCH (09:00)
[2021-01-17] MEDS ORDERED: BACTRIM DS PO SCH (09:00)
[2021-01-17] MEDS: HumaLOG 300 UNITS/3 ML VIAL SC PRN ×2 (10:57→17:21)
[2021-01-17] MEDS: ONDANSETRON 8 MG PO PRN (15:04)
[2021-01-17] MEDS: TEMOZOLOMIDE 100 MG CAPSULE PO SCH (15:39)
[2021-01-17] MEDS: Rosuvastatin 20 MG TAB PO SCH (20:50)
[2021-01-17] MEDS: Transdermal Patch Removal TOP SCH (20:52)
[2021-01-18] MEDS: Dexamethasone 4 MG TAB PO SCH ×3 (00:26→11:01)
[2021-01-18] MEDS: HumaLOG 300 UNITS/3 ML VIAL SC PRN ×2 (08:08→11:02)
[2021-01-18] MEDS ORDERED: Famotidine 20 MG TAB PO SCH (09:00)
[2021-01-18 09:32] LABS: #Lymphocytes 0.9 thou/uL (1.20-3.40); #Monocytes 0.2 thou/uL (0.11-0.59); #Neutrophils 3.2 thou/uL (1.40-6.50); %Basophils 0.2 % (0.0-1.0); %Eosinophils 0.1 % (0.0-10.0); %Lymphocytes 20.5 % (21.0-51.0); %Monocytes 4.6 % (0.0-10.0); %Neutrophils 74.6 % (42.0-75.0); Hemoglobin 11.1 g/dL (14.0-18.0); Mean Corpuscular HGB CONC 32.7 g/dL (32.0-36.0); Mean Corpuscular Hemoglobin 32.3 pg (27.0-31.0); Mean Corpuscular Volume 98.9 fL (78.0-98.0); Mean Platelet Volume 8.1 fL (7.4-10.4); Platelet Count 199 thou/uL (130-400); RBC Distribution Width 16.2 % (11.5-14.5); Red Blood Cell (RBC) Count 3.43 mill/uL (4.70-6.10); White Blood Cell (WBC) Count 4.3 thou/uL (4.8-10.8)
[2021-01-18 09:49] LABS: Anion Gap 15 mmol/L (10-20); BUN (Urea Nitrogen) 24 mg/dL (8.4-25.7); Calc. Creatinine Clearance 79 mL/min (70-130); Calcium 8.9 mg/dL (7.8-10.44); Carbon Dioxide 23 mmol/L (23-31); Chloride 102 mmol/L (98-107); Glucose 226 mg/dL (83-110); Magnesium 2.2 mg/dL (1.6-2.6); Phosphorus 3.7 mg/dL (2.3-4.7); Potassium 4.2 mmol/L (3.5-5.1); Sodium 136 mmol/L (136-145)
[2021-01-18] MEDS: TEMOZOLOMIDE 100 MG CAPSULE PO SCH (10:49)
[2021-01-18] MEDS: Sacubitril 49 MG/Valsartan 51 MG TABLET PO SCH (10:50)
[2021-01-18] MEDS: Lidocaine 5% Patch TD SCH (10:51)
[2021-01-18] MEDS: Apixaban 5 MG TAB PO SCH (11:01)
[2021-01-18] MEDS: Allopurinol 300 MG TAB PO SCH (11:01)
[2021-01-18] MEDS: Aspirin 81 mg Enteric Coated Tablet PO SCH (11:01)
[2021-01-18] MEDS: Carvedilol 6.25 MG TAB PO SCH (11:02)
[2021-01-18] MEDS ORDERED: Lisinopril 5 MG TAB PO SCH (12:30)
[2021-01-18 13:00] VITALS: TEMP 97.5
[2021-01-18 14:10] VITALS: BP 134/97
== END 2021-01-18 16:54 | DRG 54 ==
LOC: ERS 19:34 → 2SE 21:13
PROVIDERS: ADMIT Internal Medicine; ATTEND Internal Medicine
DX: C71.9 Malignant neoplasm of brain, unspecified (principal); G93.6 Cerebral edema; I50.22 Chronic systolic (congestive) heart failure; G81.94 Hemiplegia, unspecified affecting left nondominant side; I48.91 Unspecified atrial fibrillation; D64.9 Anemia, unspecified; D72.819 Decreased white blood cell count, unspecified; I25.10 Atherosclerotic heart disease of native coronary artery without angina pectoris; E78.5 Hyperlipidemia, unspecified; E11.9 Type 2 diabetes mellitus without complications; M10.9 Gout, unspecified; G47.30 Sleep apnea, unspecified; R91.8 Other nonspecific abnormal finding of lung field; I11.0 Hypertensive heart disease with heart failure; Z20.822 Contact with and (suspected) exposure to COVID-19; Z86.711 Personal history of pulmonary embolism; Z92.21 Personal history of antineoplastic chemotherapy; Z92.3 Personal history of irradiation; Z79.82 Long term (current) use of aspirin; Z79.899 Other long term (current) drug therapy; Z95.810 Presence of automatic (implantable) cardiac defibrillator; Z98.890 Other specified postprocedural states; Z87.891 Personal history of nicotine dependence
CPT/HCPCS: 36415; 36416; 70450; 71260; 80048; 80053; 81001; 82248; 82607; 82728; 83540; 83550; 83615; 83735; 84100; 84550; 85014; 85018; 85025; 85049; 85652; 85730; 86140; 93880; 99285; J1100; J1644; J1815; J8540; Q9967; S0028; U0002; U0005